=== PATIENT | female | born 1955 | race Caucasian/White ===

== ENCOUNTER 2018-08-16 00:53 | Outpatient (CLI) | payer MEDICARE, OTHER, SELFPAY ==
--- NOTE | 2018-08-16 10:39 | DI.MAMMO_ITS ---
SYMPTOMS/DIAGNOSIS: SCREENING, Z12.31 MAMMOGRAMS: Mammograms were interpreted according to the usual protocol including computer analysis with CAD system, tomosynthesis and C view imaging. The breasts are of moderate density with fairly symmetrical distribution of fibroglandular tissue. No dominant mass or clumped microcalcification is identified in either breast. There is a new small nodular radiodensity projected in the central portion of the left breast on CC view. I cannot confirm this on the MLO view. Additional mammographic views of this area are requested to include CC spot compression view. No other change seen in comparison with the previous examinations including August 2016. CONCLUSION: Additional mammographic views of the left breast requested as described above. Breast ultrasound may be indicated as well depending on the results of the additional mammographic views. Category 0, breast density category B. MQSA ASSESSMENT OF FINDINGS: Incomplete: Needs additional imaging evaluation. Category 0. Patient will receive a letter notifying them of these results. BI-RADS category B. There are scattered areas of fibroglandular density.
== END 2018-08-16 01:13 ==
PROVIDERS: Visit Provider Nurse Practitioner Women's Health
DX: Z12.31 Encounter for screening mammogram for malignant neoplasm of breast (principal); R92.8 Other abnormal and inconclusive findings on diagnostic imaging of breast
CPT/HCPCS: 77063; 77067

== ENCOUNTER 2018-08-28 00:29 | Outpatient (CLI) | payer MEDICARE, OTHER, SELFPAY ==
--- NOTE | 2018-08-28 10:10 | DI.COMBO_ITS ---
SYMPTOM/DIAGNOSIS: F/U MAMMO, NEW SMALL NODULAR RADIODENSITY, LT LEFT BREAST ADDITIONAL VIEWS AND LEFT BREAST ULTRASOUND: Additional images are interpreted according to the usual protocol including tomosynthesis and 2D imaging. A compression spot film of the left breast was obtained today. There are nonspecific fibroglandular densities, a small rounded opacity is however identified in the region of the questionable finding on the patient's mammograms. Left breast ultrasound reveals no apparent mass or cyst. SUMMARY: No specific findings to suggest a malignancy, however follow up evaluation with repeat mammograms and if appropriate, ultrasound in 6 months is recommended for further review. Category 3. MQSA ASSESSMENT OF FINDINGS: Probably benign. Six month follow-up recommended. Category 3. Patient will receive a letter notifying them of these results. BI-RADS category B. There are scattered areas of fibroglandular density.
== END 2018-08-28 00:49 ==
PROVIDERS: Visit Provider Nurse Practitioner Women's Health
DX: Z12.31 Encounter for screening mammogram for malignant neoplasm of breast (principal); R92.8 Other abnormal and inconclusive findings on diagnostic imaging of breast; N64.89 Other specified disorders of breast
CPT/HCPCS: 76642; 77063; 77067

== ENCOUNTER 2019-03-22 10:00 | Outpatient (REF) | payer MEDICARE, OTHER, SELFPAY ==
[2019-03-22 21:11] LABS: ALT 21 U/L (14-59); AST 15 U/L (15-37); Anion Gap 7.5 mmol/L (3-11); BUN 16 mg/dL (7-18); CO2 29.5 mmol/L (21.0-32.0); CREATININE 0.72 mg/dL (0.55-1.02); Calculated LDL 124 mg/dL; Chloride 104 mmol/L (98-107); Cholesterol 191 mg/dL (<200); Glucose 86 mg/dL (74-106); HDL Cholesterol 59 mg/dL (40-60); Potassium 4.3 mmol/L (3.5-5.1); Sodium 141 mmol/L (136-145); Triglyceride 44 mg/dL (<150)
== END 2019-03-22 10:20 ==
LOC: NCHCN 10:00
PROVIDERS: Visit Provider Nurse Practitioner Family
DX: Z13.220 Encounter for screening for lipoid disorders (principal); Z13.228 Encounter for screening for other metabolic disorders
CPT/HCPCS: 80048; 80061; 84450; 84460

== ENCOUNTER 2019-04-25 00:53 | Outpatient (CLI) | payer MEDICARE, OTHER, SELFPAY ==
--- NOTE | 2019-04-25 10:49 | DI.MAMMO_ITS ---
EXAM: MG MAMMO DIAGNOSTIC UNI CLINICAL HISTORY: ABNORMAL MAMMO LT BREAST, R92.8 TECHNIQUE: Full field digital CC and MLO mammographic images were obtained with 3D tomosynthesis and utilizing computer aided detection (CAD). COMPARISON: 2010 through 2018. FINDINGS: This is a six-month follow-up for small nodular asymmetry previously noted in the central left breast . Breast Density - Category B - Scattered areas of fibroglandular density Masses/Architectural Distortion: None seen. The previously noted area of nodularity is not seen on th e current exam. Microcalcifications: No suspicious pleomorphic-type calcifications are seen. Skin Thickening/Nipple Retraction: None. Axilla: Unremarkable. IMPRESSION: 1. BI-RADS category 1, negative. No significant interval change with no specific features of maligna ncy noted. 2. Unless there is more urgent need, screening mammography is recommended, as per [employer] guidelines. BI-RADS Cat 1 - Negative Breast Density - Category B - Scattered areas of fibroglandular density A negative radiographic report should not delay biopsy if a dominant or clinically suspicious mass is present. Up to ten percent of cancers are not identified on mammography. A negative report may reinforce clinical impression. Adenosis and dense breasts may obscure an underlying neoplasm. False positive reports average 6 to 10%. Patient will receive a letter notifying them of these results.
== END 2019-04-25 01:13 ==
PROVIDERS: Visit Provider Nurse Practitioner Women's Health
DX: Z12.31 Encounter for screening mammogram for malignant neoplasm of breast (principal); R92.8 Other abnormal and inconclusive findings on diagnostic imaging of breast; N64.59 Other signs and symptoms in breast
CPT/HCPCS: 77061; 77065; G0279

== ENCOUNTER → 2020-02-27 09:56 | Outpatient (BNVA) | payer MEDICARE, OTHER, SELFPAY | PROVIDERS: Visit Provider Surgery | DX: N63.20 Unspecified lump in the left breast, unspecified quadrant (principal); C50.912 Malignant neoplasm of unspecified site of left female breast | CPT/HCPCS: 19100; 99203; 99204 ==

== ENCOUNTER 2020-03-03 01:35 | Outpatient (CLI) | payer MEDICARE, OTHER, SELFPAY ==
--- NOTE | 2020-03-03 | DI.US_ITS ---
EXAM: US LOWER EXTREMITY VENOUS LT CLINICAL HISTORY: LEG EDEMA,R60.0,H/O DVT,Z86.718. TECHNIQUE: Lower extremity venous ultrasound performed using grayscale, color-flow, and spectral Dop pler analysis. COMPARISON: No exams were available for comparison FINDINGS: The common femoral, femoral and popliteal veins demonstrate normal compressibility, augmentation, and color Doppler. The posterior tibial veins are patent. The saphenous vein appears free of thrombus. No Putnam's cyst or hematoma is seen. IMPRESSION: No evidence of DVT. DATA REPOSITORY:
== END 2020-03-03 01:55 ==
PROVIDERS: Visit Provider Internal Medicine
DX: R60.0 Localized edema (principal); Z86.718 Personal history of other venous thrombosis and embolism
CPT/HCPCS: 93971

== ENCOUNTER 2020-03-10 00:30 | Outpatient (CLI) | payer MEDICARE, OTHER, SELFPAY ==
--- NOTE | 2020-03-10 | DI.US_ITS ---
EXAM: US BREAST LT COMPLETE CLINICAL HISTORY: LT BREAST MASS, N63.0 TECHNIQUE: Ultrasound performed using standard protocol. COMPARISON: US US LOWER EXTREMITY VENOUS LT from 03/03/2020 FINDINGS: Mammography was performed bilaterally, the patient has recently biopsied palpable left breast lesion seen in approximately the 8 o'clock position in the breast. This is mammographically visible as an i rregular asymmetric radiodensity. No other mass identified in either breast. No clumped microcalcif ication seen in either breast. Comparison with prior mammograms shows no other significant interval change in appearance in comparison with previous studies including August 2018. Left breast ultrasound was performed to include the entire left breast in this patient with recently diagnosed breast carcinoma of the medial left breast. Ultrasound shows a lobulated heterogeneous lesion at the 8 o'clock position in the breast measuring a bout 21 millimeters in greatest diameter with significant internal vascularity. This corresponds to the biopsied breast carcinoma. No other lesion identified elsewhere in the left breast on 4 quadrant scanning. IMPRESSION: Recently biopsied medial left breast mass, 8 o'clock position in the breast, which is biopsy confirme d carcinoma. No other lesion identified in either breast mammographically. No other lesion identifi ed in left breast ultrasonographically. BI-RADS category 6. Known biopsy proven malignancy. Breast Density - Category C - Heterogeneously dense DATA REPOSITORY:
== END 2020-03-10 00:50 ==
PROVIDERS: Visit Provider Internal Medicine
DX: C50.312 Malignant neoplasm of lower-inner quadrant of left female breast (principal)
CPT/HCPCS: 76642; 77062; 77066; 71046; G0279

== ENCOUNTER 2020-03-10 11:51 | Outpatient (CLI) | payer MEDICARE, OTHER, SELFPAY ==
--- NOTE | 2020-03-10 07:00 | DI.RAD_ITS ---
EXAM: XR CHEST 2V PA LATERAL CLINICAL HISTORY: Left breast cancer,C50.912 TECHNIQUE: 2D digital imaging was performed. COMPARISON: No exams were available for comparison FINDINGS: There is moderate biconvex thoracolumbar scoliosis with Bustillo marilin in place extending from the lo wer thoracic region into the lumbar region. The heart is not enlarged. The lungs are clear and well expanded. No pleural effusion seen. Mediastin al contours appear intact. IMPRESSION: No evidence of acute process. RADIATION DOSE DELIVERED: Total DLP
== END 2020-03-10 12:11 ==
PROVIDERS: Visit Provider Surgery
DX: C50.912 Malignant neoplasm of unspecified site of left female breast (principal)
CPT/HCPCS: 71046

== ENCOUNTER 2020-03-11 04:07 | Outpatient (CLI) | payer MEDICARE, OTHER, SELFPAY ==
[2020-03-11 12:20] LABS: HCT 43.5 % (36.0-46.0); HGB 14.1 g/dL (11.2-15.7); MCH 29.4 pg (27.0-33.0); MCHC 32.4 % (32.0-36.0); MCV 90.6 fL (80-95); Platelet Count 298 10^3/uL (130-400); RDW 14.1 % (11.7-14.6); RDW-SD 47.4 fL; WBC 7.17 10^3/uL (4.4-10.8)
[2020-03-11 13:44] LABS: ALT 27 U/L (14-59); AST 22 U/L (15-37); Albumin 3.8 g/dL (3.4-5.0); Alkaline Phosphatase 101 U/L (46-116); Anion Gap 7.4 mmol/L (3-11); BUN 20 mg/dL (7-18); Bilirubin, Total 0.4 mg/dL (0.2-1.0); CO2 26.6 mmol/L (21.0-32.0); CREATININE 0.75 mg/dL (0.55-1.02); Chloride 106 mmol/L (98-107); Glucose 90 mg/dL (74-106); Potassium 4.4 mmol/L (3.5-5.1); Sodium 140 mmol/L (136-145)
== END 2020-03-11 04:27 ==
PROVIDERS: Visit Provider Surgery
DX: C50.312 Malignant neoplasm of lower-inner quadrant of left female breast (principal)
CPT/HCPCS: 36415; 80053; 85027

== ENCOUNTER → 2020-03-26 09:33 | Outpatient (BNVA) | payer MEDICARE, OTHER, SELFPAY | PROVIDERS: Visit Provider Surgery | DX: C50.912 Malignant neoplasm of unspecified site of left female breast (principal) | CPT/HCPCS: 99214 ==

== ENCOUNTER 2020-03-27 03:29 | Outpatient (CLI) | payer MEDICARE, OTHER, SELFPAY ==
[2020-03-30 12:11] LABS: COVID-19 RT-PCR Result NEGATIVE (Negative)
== END 2020-03-27 03:49 ==
PROVIDERS: Visit Provider Surgery
DX: Z11.59 Encounter for screening for other viral diseases (principal); Z01.818 Encounter for other preprocedural examination
CPT/HCPCS: U0003

== ENCOUNTER 2020-03-31 06:40 | Day surgery (SDC) | payer MEDICARE, OTHER, SELFPAY ==
[2020-03-31] VITALS (7 sets, daily range): BP systolic 94–125; BP diastolic 57–80; PULSE 55–65; RESP 16–18; TEMP 35.9–37; O2SAT 94–99
--- NOTE | 2020-03-31 06:30 | DI.NM_ITS ---
EXAM: NM SENTNODE INJ ONLY CLINICAL HISTORY: Left breast ca, n63.20. TECHNIQUE: Injected Dose: 1 mCi Tc-99m filtered sulfur colloid COMPARISON: No exams were available for comparison FINDINGS: 1 mCi of technetium 99 M sulfur colloid was injected into the left breast by Dr. Thornton from the Depart ment of surgery according to protocol. No images were obtained. IMPRESSION: 1. Girard node injection. No images were obtained. DATA REPOSITORY:
[2020-03-31] MEDS: Lactated Ringers 1,000 ML 80 ML IV (07:50)
--- NOTE | 2020-03-31 09:12 | PDOC.DSDIS_ITS ---
Discharge Plan Disposition Patient Disposition: HOME Condition: Good Discharge Details Reason For Visit: Left breast lumpectomy and sentinel node biopsy Attending Provider: Danyell Thornton Primary Care Provider: Red Pizarro Home Meds and New Rx's Prescriptions: Continued aspirin 325 mg tablet 325 mg PO DAILY RF: 0 Emergen-C 1,000 mg powder effervescent in packet 1 packet PO DAILY RF: 0 Discharge Instructions Additional Instructions: The top bandages can be removed tomorrow. The steri strips will usually stick for about a week. When the edges start to curl up, they can be removed. It is okay to shower tomorrow, the water can run over the steri strips Do not swim or soak in a tub for two weeks Call for any concerns including fever, increased pain, vomiting, incision redness or drainage. It is normal to have a small lump under the incisions. There will be some blue staining near the nipple and your urine may be blue for a day. Do not lift more than 15 pounds for two weeks. Walking and stairs are fine. Do not drive if on narcotic pain meds or if limited by pain. May use Tylenol alternating with ibuprofen for pain control. Ice is also an o ption. The maximum dose for Tylenol is 4000 mg/day. May use ibuprofen 800 mg every 8 hours as needed. If concerned about constipation, you may use a stool softener or milk of magnesia. Referrals: Danyell Thornton MD [ [facility] STAFF PHYSICIAN] - 04/06/20 Activity:: Do not lift more than 15# Remove Dressings/Wound Care:: 24 hours Shower/Bathe:: 24 hours Diet:: As Tolerated Discharge Orders Discharge Orders: Discharge Order (Routine); Ordered 03/31/20 Ordered By: Danyell Thornton DS: Diagnosis Discharge Diagnosis (1) Breast cancer, left: Status: Acute
--- NOTE | 2020-03-31 09:14 | W.PM.OP ---
Operative Note Operative Note DATE OF PROCEDURE: 03/31/20 PRE-OP DIAGNOSIS: Left breast cancer POST-OP DIAGNOSIS: same PROCEDURE: Left breast lumpectomy and left sentinel node biopsy SURGEON: Danyell Thornton GEAR GENERATOR SET UP OPERATOR: Gina Regan ANESTHESIA: GETA and local Indications: This 65 year old woman presents for surgical treatment of left breast invasive ductal cancer. Procedure Description: The patient was taken to nuclear medicine preoperatively and underwent injection of radioactive sulfur colloid into the left nipple. She was later taken to the operating room and after induction of general anesthetic had the areolar region cleansed with alcohol and 5 cc of methylene blue was injected into the retroareolar location. The left breast and axilla were prepped and draped sterilely. The gamma probe was used to identify an area of high uptake in the axilla. A transverse incision was made after injection local anesthetic. Subcutaneous tissue was divided with cautery to reveal a blue channel which was followed to a large blue lymph node. There may have been 1 or 2 other attached nodes here. The node was excised completely with cautery. The count outside the axilla was 53,120. An additional area of high uptake was identified in the axilla and another node identified. This was excised completely with cautery. The count was 17,526. After removal of the 2 lymph nodes background count was 1491. There was good hemostasis. No other palpable nodes are present so the skin was closed with a 4 Monocryl subcuticular stitch. The lumpectomy was then performed. The mass was located near the sternum at about the 7 o'clock position. The region around the mass was infiltrated with local anesthetic and a wide elliptical incision was made over the mass. Cautery was used to create skin flaps above and below the mass which were taken down to the pectoralis muscle. The mass was dissected off the chest wall by removing a thin layer of pectoralis muscle. There were grossly negative margins. The specimen was labeled with a short stitch superior, long stitch lateral the skin was superficial and pec muscle was deep. This was sent to pathology. Hemostasis was achieved with cautery. The superior and inferior skin flaps were mobilized for better closure. Clips were placed on the periphery of the cavity for future localization. The deep dermis was closed with numerous interrupted buried 2-0 Vicryl sutures and the skin closed with a running 4 Monocryl subcuticular stitch. She tolerated procedure well and stable
[2020-03-31] MEDS: ceFAZolin 2 GM/50 ML BAG IVPB (09:53)
--- NOTE | 2020-03-31 10:27 | BREAST_PTH ---
PATIENT: Tere Carr LOC: [facility] U#:[id number] AGE/SX: 65/F ROOM: RE03/31/[address]: Danyell Thornton MD : [id number] BED: DIS: 03/31/2020 SPEC #: [id number] RECD: 04/01/20 12:36 STATUS: ESA REQ #: [id number] LENNIE: 03/31/20 10:[address]: Danyell Thornton DEPT: Surgical Specimen RECD BY: Geni Rodrigues ENTERED: 04/01/20 12:39 SP TYPE: Breast OTHR DR: Red Pizarro Tissues: 1 - BREAST INCISION/EXCISION 2 - BREAST INCISION/EXCISION 3 - BREAST INCISION/EXCISION Procedures: IMMUNOPEROXIDASE STAIN GROSS AND MICRO LEVEL 5 Comments: [id number] (ALL SPECIMENS RADIOACTIVE)
[2020-03-31] MEDS: Lidocaine 2% Multi-Dose 50 ML VIAL (11:04)
[2020-03-31] MEDS: Bupivacaine 0.5% Pres-Free 30 ML VIAL (11:04)
[2020-03-31] MEDS: Acetaminophen 325 MG TAB 650 MG PO (13:37)
== END 2020-03-31 14:21 | disposition home or self-care (01) ==
LOC: DSU 09:12 → SUR 04-01 10:05 → PDS 04-01 10:06
PROVIDERS: PCP Internal Medicine; Visit Provider Surgery
PROC: (CPT 38525; principal; 2020-03-31 09:30)
PROC: (CPT 38525; 2020-03-31 09:30)
DX: C50.312 Malignant neoplasm of lower-inner quadrant of left female breast (principal); Z17.0 Estrogen receptor positive status [ER+]; Z80.3 Family history of malignant neoplasm of breast
CPT/HCPCS: 38525; 19301; 38792; A9541; 88307; 88361; J0690; J1100; J1885; J2405; J2704

== ENCOUNTER → 2020-04-06 10:32 | Outpatient (BNVA) | payer MEDICARE, OTHER, SELFPAY | PROVIDERS: PCP Internal Medicine; Referring Provider Internal Medicine; Visit Provider Surgery | DX: Z48.89 Encounter for other specified surgical aftercare (principal); C50.912 Malignant neoplasm of unspecified site of left female breast ==

== ENCOUNTER 2020-05-25 02:08 | Outpatient (CLI) | payer MEDICARE, OTHER, SELFPAY ==
[2020-05-25 09:21] LABS: CREATININE 0.9 mg/dL (0.55-1.02)
== END 2020-05-25 02:09 | disposition home or self-care (01) ==
PROVIDERS: PCP Internal Medicine; Visit Provider Radiology Radiation Oncology
DX: C50.312 Malignant neoplasm of lower-inner quadrant of left female breast (principal); R16.0 Hepatomegaly, not elsewhere classified
CPT/HCPCS: 36415; 82565

== ENCOUNTER 2020-05-27 01:24 | Outpatient (CLI) | payer MEDICARE, OTHER, SELFPAY ==
--- NOTE | 2020-05-27 | DI.MRI_ITS ---
EXAM: MR ABDOMEN WO/W CLINICAL HISTORY: F/U ABNL CT SIM FOR RADIATION,R93.5,BREAST CA,HYPODENSE LIVER LESIONS TECHNIQUE: Multiplanar multisequence MRI was performed with both pre and post contrast infused seque nces. Contrast injected sequences were performed following IV injection of 16 cc of Dotarem. COMPARISON: CR XR CHEST 2V PA LATERAL from 03/10/2020 FINDINGS: VISUALIZED LUNG BASES: No pleural effusions evident. There are postsurgical changes in the left [address]. There is a deep fluid collection in the medial left breast upper again suggest wall partially in cluded in the field of view and probably postoperative seroma, this measuring approximately 4 cm wide by 1.2 cm thick. Thoracolumbar scoliosis is noted. There is no ascites evident. Small hiatal hernia evident. LIVER: There are multiple-very numerous well-defined T1 hypointense and T2 hyperintense lesions in th e liver, the largest measuring 2.9 by 1.9 by 2.2 cm, located in the dome. These do not exhibit enhan cement following contrast injection. BILIARY: There is a large gallstone in the gallbladder lumen. No gallbladder wall edema evident. Th e CBD is not dilated. PANCREAS: There is no evidence of pancreatic mass nor dilatation of the pancreatic duct. SPLEEN: Spleen is not enlarged and there are no intrasplenic lesions. ADRENALS: There are no significant adrenal masses. KIDNEYS: No evidence of polycystic kidney disease.There is a small 1 centimeter exophytic cyst off th e medial cortex of the right kidney. No solid renal lesions. No hydronephrosis. ABDOMINAL AORTA: Not enlarged and there is no significant para-aortic adenopathy. ANTERIOR ABDOMINAL WALL/GI: There is no evidence of significant anterior abdominal wall hernia in the field of view of this study.Is no evidence of obvious bowel obstruction. OSSEOUS: There are no lytic osseous lesions in the field of view of this study. Artifact is seen posteriorly related to Bustillo rashard in the lower thoracic-lumbar spine. There is scoliosis. There are no distinct lytic osseous lesions identified in the field of view of this study . IMPRESSION: 1. There are numerous well-defined findings in the liver which all have the signal characteristics of benign cysts, also not exhibiting enhancement following contrast injection. These do not have the a ppearance of metastatic lesions, given the recent breast cancer diagnosis in this patient. 2. There is no evidence of polycystic kidney disease. There is a solitary small cyst in the right ki dney. No cysts in the pancreas. 3. Cholelithiasis noted. This can be confirmed with ultrasound. 4. Postop changes including seroma in the left breast. 5. Scoliosis. Rashard artifact in the spinal column. No obvious lytic osseous lesions. DATA REPOSITORY:
--- NOTE | 2020-05-27 | DI.US_ITS ---
EXAM: US THYROID CLINICAL HISTORY: F/U ABNL FINDINGS ON CT SIM,HYPODENSE LESION RT THYROID,BREAST CA. TECHNIQUE: Ultrasound thyroid performed using standard protocol. COMPARISON: US US BREAST LT COMPLETE from 03/10/2020 FINDINGS: The right thyroid lobe is slightly prominent in size measuring up to 2.3 centimetres AP by 3.4 cm wid e by 5 centimetres cephalocaudal. There are 3 focal nodule evident in the right lobe The largest nodule is at the mid pole level measures 2.7 x 1.7 x 3.4 cm mixed solid-cystic and relati vely isoechoic gland parenchyma. Wider than taller and with smooth margins and no extension beyond t he gland. Does not contain echogenic foci therein. Total point =TR2 Below this level is a slightly smaller solid well-defined nodule in the right lobe which measures 1.3 x 1.2 x 1.2 cm. Also isoechoic to the gland and appearing round, not taller than wider and also exh ibiting smooth margins and no internal echogenic foci. Total points=TR3 More superiorly in the right lobe there is a 6 by 3 millimeter well-defined wider than taller nodule mixed solid-cystic with solid components isoechoic to gland and no echogenic foci therein. Total poi nt= TR2 The isthmus exhibits normal thickness 2-3 millimeters and no nodules. The left thyroid lobe exhibits normal size measuring 1.3 cm x 1.7 x 3.7 cm cephalocaudal. Contains 2 small benign colloid cysts. No significant lymphadenopathy evident IMPRESSION: The right thyroid lobe is enlarged and contains 3 nodules as described above. TR3-recommend repeat ultrasound in 6 months. DATA REPOSITORY:
[2020-05-27] MEDS: Gadoterate meglumine 20 ML VIAL 16 ML IVP (09:24)
== END 2020-05-27 01:25 ==
LOC: DI 01:25
PROVIDERS: PCP Internal Medicine; Visit Provider Radiology Radiation Oncology
DX: E04.2 Nontoxic multinodular goiter (principal); E07.89 Other specified disorders of thyroid; C50.312 Malignant neoplasm of lower-inner quadrant of left female breast; R93.5 Abnormal findings on diagnostic imaging of other abdominal regions, including retroperitoneum; K76.89 Other specified diseases of liver; R16.0 Hepatomegaly, not elsewhere classified; K80.20 Calculus of gallbladder without cholecystitis without obstruction
CPT/HCPCS: 74183; 76536

== ENCOUNTER 2020-10-22 02:16 | Outpatient (CLI) | payer MEDICARE, OTHER, SELFPAY ==
--- NOTE | 2020-10-22 | DI.DEXA_ITS ---
Exam(s) XR DEXA BONE DENSITY W/WO MONIE EXAM: XR DEXA BONE DENSITY W/WO MONIE CLINICAL HISTORY: LT BREAST CA,C50.912,Z17.0,SCREENING FOR OSTEOPOROSIS IN POSTMENOPAUSAL WOM TECHNIQUE: Routine DEXA evaluation of the lumbar spine, hip, or forearm. COMPARISON: No exams were available for comparison FINDINGS: Performed on a Hologic unit. Lateral image: No compression fracture evident. Bustillo marilin Lumbar Spine total T-score: Not done due to Bustillo marilin Hip total T-score:-0.4 Independent reading at the femoral neck level yields a T-score of -0.6 Forearm total T-score: -0.8 IMPRESSION: Bone mineral density measures in the normal range. Fracture risk is low. Note: Any spine fracture indicates 5x risk for subsequent spine fracture and 2x risk for subsequent h ip fracture. World Health Organization criteria for BMD interpretation classify patients: Normal...... T- Score at or above -1.0 Osteopenic... T- Score between -1.0 and -2.5 Osteoporosis... T-Score at or below -2.5
== END 2020-10-22 02:36 ==
PROVIDERS: PCP Internal Medicine; Visit Provider Internal Medicine
DX: Z13.820 Encounter for screening for osteoporosis (principal); C50.912 Malignant neoplasm of unspecified site of left female breast; Z17.0 Estrogen receptor positive status [ER+]; Z78.0 Asymptomatic menopausal state; Z79.811 Long term (current) use of aromatase inhibitors
CPT/HCPCS: 77080

== ENCOUNTER 2021-05-09 18:30 | Emergency (ER) | payer MEDICARE, OTHER, SELFPAY ==
[2021-05-09 18:35] VITALS: BP 147/77; PULSE 96; RESP 18; TEMP 37.2; O2SAT 97
--- NOTE | 2021-05-09 19:02 | ED.GENADUL_ITS ---
Discharge Plan Disposition Patient Disposition: HOME Condition: Improving Discharge Details Clinical Impression: Edema of left lower extremity Primary Care Provider: Red Pizarro ED Provider: Gerardo Meneses Home Meds and New Rx's Prescriptions: Continued aspirin 325 mg tablet 325 mg PO DAILY RF: 0 Emergen-C 1,000 mg powder effervescent in packet 1 packet PO DAILY RF: 0 coenzyme Q10 [Co Q-10] 10 mg capsule 10 mg PO ONCE RF: 0 cholecalciferol (vitamin D3) 10 mcg (400 unit) capsule 10 mcg PO DAILY RF: 0 Discharge Instructions Additional Instructions: As we discussed you were administered a single dose of Lovenox as a blood thinner overnight. You will return tomorrow morning for a left lower extremity ultrasound. Please call the radiology office at 7:30-8 AM at [phone] for an appointment time. Return sooner for any acute concerns. Medical Decision Making 66-year-old female presents from home with day 2 of left lower extremity swelling and discomfort due to the edema. No pain. She has not had any chest pain or shortness of breath. She reports having previous DVT for which she was anticoagulated with warfarin, which she last took 10 years ago. Patient is well-appearing, interactive, in no acute distress and oxygenating normally. Exam of her left leg is concerning for DVT given the increased circumference versus contralateral side and venous congestion present. Patient consented for subcutaneous Lovenox and will return tomorrow morning for ultrasound of the left lower extremity. She is stable and appropriate for discharge at this time. HPI General Mode of arrival: ambulatory . Date/Time Provider Initiated Documentation: 05/09/21 18:42 . Limitations to Documentation: no limitations . Information obtained by: patient . History of Present Illness 66 year old F presents to the emergency department with the chief complaint of Left leg swelling over 2 days time, described as moderate and similar to prior episodes, Quality is described as constant, and is localized to the left and lower extremity. Patient reports no radiation. Patient started experiencing this hour(s) No relieving factors improve symptom(s), No exacerbating factors reported . Patient notes denies chest pain and shortness of breath. Patient did receive the following treatments prior to arrival, none Related Data Home Medications Medication Instructions Recorded Confirmed aspirin 325 mg tablet 325 mg PO DAILY 02/27/20 04/06/20 ascorbic acid 1,000 1 packet PO DAILY 03/26/20 04/06/20 ls-[id number]-[id number] powder effervescent pack cholecalciferol (vitamin D3) 10 10 mcg PO DAILY 11/03/20 mcg (400 unit) capsule coenzyme Q10 10 mg capsule 10 mg PO ONCE 11/03/20 Allergies Allergy/AdvReac Type Severity Reaction Status Date / Time No Known Allergies Allergy Unverified 05/09/21 18:44 General Stated Complaint: Vascular PITER: 3 Review of Systems Narrative: No chest pain or shortness of breath. Not currently anticoagulated. Otherwise well. 4 systems were reviewed and otherwise negative. PFSH All Active Problems (Updated 05/09/21 @ 19:05 by Gerardo Meneses MD) Edema of left lower extremity (Acute) Mentally challenged (Acute) Thyroid nodule (Acute) Screening for colon cancer (Acute) Mental disability (Acute) Breast cancer, left (Acute) Medical History DVT, bilateral lower limbs Tx with heperain Dysphagia Epilepsy Per sister she has a slight developmental delay, but is pretty with it, per sister she signs for self Esotropia, left eye Family history of breast cancer Left breast mass Leg edema Liver cyst Postop check Scoliosis Seizure disorder Dx at age 12yrs Per sister she hasnt had one in over 10 years Surgical History (Updated 03/25/21 @ 07:00 by Garima Horne RN) Hx of colonoscopy (~04/2010) Status post left breast lumpectomy (~03/2020) with sentinel node bx, Thornton Family History Mother Breast cancer Dx 50s Sister Breast cancer Dx 40s Sister No problems noted. Social History Smoking/Tobacco Use Status: Never Smoking risk assessment performed?: Yes Alcohol Intake: current Alcohol Intake frequency: a few times a week Alcohol type: hard liquor Drug use: Never Substance use type: does not use Details: alcohol: t-2, pt. had a Susanne drink for her birthday Do you feel safe at home: Yes Do you feel safe in your relationship?: Yes Additional Social history: unable to assess privately Exam Narrative Exam Narrative: GEN: awake, alert, oriented 3. Pleasant, well groomed, interactive. HEAD: Normocephalic, atraumatic ENT: Mucous membranes moist, oropharynx unremarkable, External ear exam unremar kable EYES: PERRL, EOMI NECK: Full ROM, no ERICH, no menigismus CHEST/RESP: Nontender, clear to auscultation bilateral, no wheeze/rhonchi/rales CARDIOVASCULAR: RRR, no murmur, rub aman. 2+ Rad pulse bilateral EXT: Full ROM, left lower extremity is edematous, greater in circumference around the calf than the right, mild venous congestion present. Neuro: Grossly normal neurologic exam, conversant, interactive. Psych: Speech fluent, thoughts congruent, affect normal Course Vital Signs Vital signs: Vital Signs Temperature 37.2 C 05/09/21 18:35 Pulse 96 H 05/09/21 18:35 Respiratory Rate 18 05/09/21 18:35 Blood Pressure 147/77 H 05/09/21 18:35 Pulse Oximetry 97 05/09/21 18:35 Temperature 37.2 C 05/09/21 18:35 Temperature Source Temporal Artery Scan 05/09/21 18:35 Pulse 96 H 05/09/21 18:35 Respiratory Rate 18 05/09/21 18:35 Respiratory Effort Non-Labored 05/09/21 18:42 Blood Pressure 147/77 H 05/09/21 18:35 Blood Pressure Position Sitting 05/09/21 18:35 Pulse Oximetry 97 05/09/21 18:35 Oxygen Delivery Method Room Air 05/09/21 18:35 Oxygen Flow Rate 0 05/09/21 18:35 Pain Level 8 05/09/21 18:35 PAWSS Have you Been Recently Intoxicated or Drunk Within the Last 30 days?: No Have you Ever Experienced Previous Episodes of Alcohol Withdrawal?: No Have you ever Experienced Withdrawal Seizures?: No Have you ever Experienced Delirium Tremens(DT)s?: No Have you ever undergone Alcohol Rehabilitation Treatment (i.e, inpt ot outpatient treatment programs)?: No Have you ever Experienced Blackouts?: No Have you ever Combined Alcohol with other Downers within the last 90 days?: No Have you ever Combined Alcohol with any other Substance of Abuse during the last 90 days?: No Positive Blood Alcohol level on Presentation? [PCS.BAL]: No Evidence of Increased Autonomic Activity (i.e. HR>120, tremor, sweating, agitation, nausea)?: No Result: 0
[2021-05-09] MEDS: Enoxaparin 80 MG/0.8 ML SYR SC (19:29)
--- NOTE | 2021-05-09 20:36 | NUR.NOTE ---
Faxed DI requistion for L LE ultra sound. Patient instructed to call [phone] to make appt. Will follow up in ED after imaging.Nursing Note:
== END 2021-05-09 19:39 | disposition home or self-care (01) ==
PROVIDERS: Emergency Provider Emergency Medicine; PCP Internal Medicine
DX: R60.0 Localized edema (principal); Z86.718 Personal history of other venous thrombosis and embolism
CPT/HCPCS: 96372; 99284; 99283; J1650

== ENCOUNTER → 2021-05-10 09:21 | Outpatient (CLI) | payer MEDICARE, OTHER, SELFPAY ==
--- NOTE | 2021-05-10 | DI.US_ITS ---
Exam(s) US LOWER EXTREMITY VENOUS LT EXAM: US LOWER EXTREMITY VENOUS LT CLINICAL HISTORY: LT LEG SWELLING, R22.42, EDEMA. TECHNIQUE: Lower extremity venous ultrasound performed using grayscale, color-flow, and spectral Do ppler analysis. COMPARISON: US US LOWER EXTREMITY VENOUS LT from 03/03/2020 FINDINGS: The common femoral and femoral veins demonstrate normal compressibility, augmentation, and color Dopp ler. There is partially occlusive thrombus visible in the popliteal vein extending into a proximal p eroneal vein, measuring greater than 5 cm in length. The posterior tibial veins are patent. No saph enous vein thrombosis or other superficial venous thrombosis is seen. No hematoma or Putnam's cyst is seen. Subcutaneous edema is present. IMPRESSION: DVT involving the popliteal through proximal peroneal veins. DATA REPOSITORY:
== END ==
PROVIDERS: PCP Internal Medicine; Visit Provider Emergency Medicine
DX: R22.42 Localized swelling, mass and lump, left lower limb (principal); I82.432 Acute embolism and thrombosis of left popliteal vein; I82.452 Acute embolism and thrombosis of left peroneal vein
CPT/HCPCS: 93971

== ENCOUNTER 2021-05-10 10:20 | Emergency (ER) | payer MEDICARE, OTHER, SELFPAY ==
[2021-05-10 10:27] VITALS: BP 134/73; PULSE 80; RESP 16; TEMP 36.4; O2SAT 98
--- NOTE | 2021-05-10 10:42 | W.ED.GENAD ---
Discharge Plan Disposition Patient Disposition: HOME Condition: Stable Discharge Details Clinical Impression: DVT (deep venous thrombosis) Primary Care Provider: Red Pizarro ED Provider: Silvano Toro Home Meds and New Rx's Prescriptions: New Eliquis DVT-PE Treat 30D Start 5 mg (74 tabs) tablets,dose pack See Rx Instructions .ROUTE .COMPLEX Qty: 74 RF: 0 Continued aspirin 325 mg tablet 325 mg PO DAILY RF: 0 Emergen-C 1,000 mg powder effervescent in packet 1 packet PO DAILY RF: 0 coenzyme Q10 [Co Q-10] 10 mg capsule 10 mg PO ONCE RF: 0 cholecalciferol (vitamin D3) 10 mcg (400 unit) capsule 10 mcg PO DAILY RF: 0 Discharge Instructions Instructions: Deep Vein Thrombosis (ED) Additional Instructions: Your ultrasound reveals a DVT in your left lower extremity. After discussing options, speaking with your sister, and speaking with Dr. Pizarro, the plan is to initiate a prescription of Eliquis. Please watch for new or worsening symptoms and return to the ER for any concerns. I would like you to contact your primary care office later today or tomorrow to discuss your ER visit need for outpatient reevaluation. This medication can cause bleeding and I strongly recommend that you seek medical attention for things that you may have not otherwise such as a minor car accident, bumping your head, etc. Medical Decision Making 66-year-old female presents for ultrasound results. Contacted by radiology and the patient does have a DVT. I discussed the findings with the patient as well as her sister Tatum. They both refer no additional Lovenox and a simple oral agent. Given her cognitive delay, I did reach out to her primary care office and was able to speak with Dr. Pizarro. He feels as though starting the patient on Eliquis is perfectly appropriate and will be happy to follow her as an outpatient whether it be through himself or one of his colleagues. This plan was then relayed to both the patient and her sister once again. No additional questions or concerns. Patient appears well, nontoxic, denies any chest pain or shortness of breath. Prescription for Eliquis was sent to her pharmacy. Strict discharge and return precautions were provided. This documentation was generated using [employer] system, please disregard any oddities of phrase or misspellings. Medical Records Medical records reviewed: Yes I reviewed the patient's medical records. Imaging Data Radiologic Study: Attestation: I personally reviewed and interpreted this imaging study as follows: Imaging: Ultrasound Radiologist's impression: Exam(s) US LOWER EXTREMITY VENOUS LT EXAM: US LOWER EXTREMITY VENOUS LT CLINICAL HISTORY: LT LEG SWELLING, R22.42, EDEMA. TECHNIQUE: Lower extremity venous ultrasound performed using grayscale, color-flow, and spectral Doppler analysis. COMPARISON: US US LOWER EXTREMITY VENOUS LT from 03/03/2020 FINDINGS: The common femoral and femoral veins demonstrate normal compressibility, augmentation, and color Doppler. There is partially occlusive thrombus visible in the popliteal vein extending into a proximal peroneal vein, measuring greater than 5 cm in length. The posterior tibial veins are patent. No saphenous vein thrombosis or other superficial venous thrombosis is seen. No hematoma or Putnam's cyst is seen. Subcutaneous edema is present. IMPRESSION: DVT involving the popliteal through proximal peroneal veins. HPI General Mode of arrival: ambulatory. Date/Time Provider Initiated Documentation: 05/10/21 10:26. Limitations to Documentation: no limitations. Information obtained by: patient. HPI Narrative: This is a 66-year-old female, past medical history of DVT, leg edema, breast cancer, presenting to the ER for ultrasound results for concern of a DVT in her left lower extremity. Patient was seen in the ER yesterday, given a single dose of Lovenox and set up for an ultrasound today, please refer to that note. Patient denies any chest pain or shortness of breath. She denies fever or worsening discomfort in her leg. Reports the discomfort in her back is slightly improved. Patient states that she was on Coumadin when she last had a DVT, but does not believe that she can safely give herself Lovenox injections. Related Data Home Medications Medication Instructions Recorded Confirmed aspirin 325 mg tablet 325 mg PO DAILY 02/27/20 05/10/21 ascorbic acid 1,000 1 packet PO DAILY 03/26/20 05/10/21 dk-[id number]-wbtjvrsg powder effervescent pack cholecalciferol (vitamin D3) 10 10 mcg PO DAILY 11/03/20 05/10/21 mcg (400 unit) capsule coenzyme Q10 10 mg capsule 10 mg PO ONCE 11/03/20 05/10/21 apixaban [Eliquis DVT-PE Treat 30D See Rx Instructions .ROUTE 05/10/21 Start] .COMPLEX #74 dose pk Previous Rx's Medication Instructions Recorded apixaban [Eliquis DVT-PE Treat 30D See Rx Instructions .ROUTE 05/10/21 Start] .COMPLEX #74 dose pk Allergies Allergy/AdvReac Type Severity Reaction Status Date / Time No Known Allergies Allergy Unverified 05/10/21 10:31 General Stated Complaint: Recheck PITER: 5 Review of Systems Constitutional Constitutional: Denies fever(s) Cardiovascular Cardiovascular: Denies chest pain and Denies dyspnea Respiratory Respiratory: Denies dyspnea Musculoskeletal Musculoskeletal: Denies arthralgias, Denies numbness, Denies stiffness and Denies tingling Integumentary/Breasts Skin/Breast: Denies rash Neurologic Neurologic: Denies numbness and Denies tingling Hematologic/Lymphatic Hematologic/Lymphatic: Denies easy bleeding and Denies easy bruising PFSH All Active Problems Edema of left lower extremity (Acute) DVT (deep venous thrombosis) (Chronic) Mentally challenged (Acute) Thyroid nodule (Acute) Screening for colon cancer (Acute) Mental disability (Acute) Breast cancer, left (Acute) Medical History DVT, bilateral lower limbs Tx with heperain Dysphagia Epilepsy Per sister she has a slight developmental delay, but is pretty with it, per sister she signs for self Esotropia, left eye Family history of breast cancer Left breast mass Leg edema Liver cyst Postop check Scoliosis Seizure disorder Dx at age 12yrs Per sister she hasnt had one in over 10 years Surgical History Hx of colonoscopy (~04/2010) Status post left breast lumpectomy (~03/2020) with sentinel node bx, [place] Family History Mother Breast cancer Dx 50s Sister Breast cancer Dx 40s Sister No problems noted. Social History Smoking/Tobacco Use Status: Never Smoking risk assessment performed?: Yes Alcohol Intake: current Alcohol Intake frequency: a few times a week Alcohol type: hard liquor Drug use: Never Substance use type: does not use Details: alcohol: t-2, pt. had a Susanne drink for her birthday Do you feel safe at home: Yes Do you feel safe in your relationship?: Yes Additional Social history: unable to assess privately Exam Const General: cooperative, healthy appearing, comfortable and no acute distress Orientation: alert and awake [facility] Head: normal to inspection, normocephalic and atraumatic Eyes Conjunctivae: conjunctivae normal Neck Neck: normal visual inspection, trachea midline and supple Resp Effort & Inspection: normal respiratory effort and able to speak in complete sentences Auscultation: clear to auscultation bilaterally Cardio Rate: regular rate Rhythm: regular rhythm Skin General skin exam: no rashes or lesions noted Neuro General: patient alert, patient awake, moves all extremities and no focal motor deficits Cognition: normal cognition Speech: speech normal Gait: normal gait Sensory Exam: no sensory deficits noted Extrem General: full ROM and capillary refill normal Other: Left leg with diffuse mild edema-swelling to the calf region with discomfort and it appears to be mild vascular congestion. There is no erythema, warmth, induration or fluctuance. Normal pedal pulse and capillary refill. No palpable cord noted. Psych Appearance: grossly normal Mental Status: mental status grossly normal Course Vital Signs Vital signs: Vital Signs Temperature 36.4 C L 05/10/21 10:27 Pulse 80 05/10/21 10:27 Respiratory Rate 16 05/10/21 10:27 Blood Pressure 134/73 05/10/21 10:27 Pulse Oximetry 98 05/10/21 10:27 Temperature 36.4 C L 05/10/21 10:27 Temperature Source Oral 05/10/21 10:27 Pulse 80 05/10/21 10:27 Respiratory Rate 16 05/10/21 10:27 Respiratory Effort 05/10/21 10:27 Blood Pressure 134/73 05/10/21 10:27 Blood Pressure Position Sitting 05/10/21 10:27 Pulse Oximetry 98 05/10/21 10:27 Oxygen Delivery Method Room Air 05/10/21 10:27 Oxygen Flow Rate 0 05/10/21 10:27 Pain Level 7 05/10/21 10:27
[2021-05-10 11:25] VITALS: BP 125/71; PULSE 75; RESP 14; TEMP 36.4; O2SAT 96
[2021-05-10 11:37] VITALS: BP 125/71; PULSE 75; RESP 14; TEMP 36.4; O2SAT 96
[2021-05-10] MEDS: Apixaban 5 MG TAB 10 MG PO ×2 (14:00)
== END 2021-05-10 11:44 | disposition home or self-care (01) ==
PROVIDERS: Emergency Provider Physician Assistant; PCP Internal Medicine
DX: I82.492 Acute embolism and thrombosis of other specified deep vein of left lower extremity (principal)

== ENCOUNTER 2021-05-13 19:29 | Emergency (ER) | payer MEDICARE, OTHER, SELFPAY ==
[2021-05-13 19:36] VITALS: BP 153/83; PULSE 94; RESP 18; TEMP 36.3; O2SAT 97
--- NOTE | 2021-05-13 20:15 | W.ED.GENAD ---
Discharge Plan Disposition Patient Disposition: HOME Condition: Stable Discharge Details Clinical Impression: DVT (deep venous thrombosis) Primary Care Provider: Red Pizarro ED Provider: Silvano Toro Home Meds and New Rx's Prescriptions: Continued aspirin 325 mg tablet 325 mg PO DAILY RF: 0 Emergen-C 1,000 mg powder effervescent in packet 1 packet PO DAILY RF: 0 coenzyme Q10 [Co Q-10] 10 mg capsule 10 mg PO ONCE RF: 0 cholecalciferol (vitamin D3) 10 mcg (400 unit) capsule 10 mcg PO DAILY RF: 0 Eliquis DVT-PE Treat 30D Start 5 mg (74 tabs) tablets,dose pack See Rx Instructions .ROUTE .COMPLEX Qty: 74 RF: 0 Discharge Instructions Instructions: Deep Vein Thrombosis (ED) Additional Instructions: You were diagnosed with a DVT on Monday and treated appropriately with Eliquis. It may take additional time for your symptoms to resolve. As we discussed, rest, elevate, warm compresses every 2 hours for 20 minutes, be sure to monitor your water intake, continue wearing your compression stockings, and she may walk on your treadmill several times a day. Please watch for new or worsening symptoms and return to the ER for any concerns. Lastly, I do recommend contacting your primary care provider tomorrow to discuss your ongoing symptoms, if symptoms were to continue or worsen then outpatient repeat ultrasound may be indicated Medical Decision Making 66-year-old female concerned that her DVT is not improving fast enough, has been taking Eliquis since Monday. She denies worsening symptoms, chest pain or shortness of breath. I personally evaluated the patient on Monday and I do not see any obvious significant difference or worsening of her symptoms. Patient reports that in the past Coumadin worked well for her 10 years ago. We once again discussed Coumadin versus Eliquis, pros and cons, bridging, etc. and patient would like to continue with the Eliquis. I was then able to speak with the patient sister, Tatum, and made her aware of the ER visit, wish to continue taking the Eliquis. We discussed the importance of contacting their primary care provider tomorrow to discuss the need for outpatient reevaluation. Strict discharge and return precautions were provided Medical Records Medical records reviewed: Yes I reviewed the patient's medical records. HPI General Mode of arrival: ambulatory. Date/Time Provider Initiated Documentation: 05/13/21 19:29. Limitations to Documentation: no limitations. Information obtained by: patient. HPI Narrative: This is a 66-year-old female, past medical history of epilepsy, DVT approximately 10 years ago, subsequent DVT that was diagnosed on Monday and patient was started on Eliquis, presenting to the ER this evening for concern that her leg has not improved fast enough. Patient states that she has been taking her Eliquis as directed. She denies any chest pain or shortness of breath. She denies any worsening symptoms of her leg but is concerned that it is not getting better as fast as she would like. She denies any fever, numbness, tingling, weakness. Reports that her leg feels tight and is slightly painful. Has not taken any ahjp-rxo-eeijcnr medications for her symptoms Related Data Home Medications Medication Instructions Recorded Confirmed aspirin 325 mg tablet 325 mg PO DAILY 02/27/20 05/10/21 ascorbic acid 1,000 1 packet PO DAILY 03/26/20 05/10/21 vf-iylmkojijvnr-xzpbponn powder effervescent pack cholecalciferol (vitamin D3) 10 10 mcg PO DAILY 11/03/20 05/10/21 mcg (400 unit) capsule coenzyme Q10 10 mg capsule 10 mg PO ONCE 11/03/20 05/10/21 Eliquis DVT-PE Treat 30D Start See Rx Instructions .ROUTE 05/10/21 .COMPLEX #74 dose pk Previous Rx's Medication Instructions Recorded Eliquis DVT-PE Treat 30D Start See Rx Instructions .ROUTE 05/10/21 .COMPLEX #74 dose pk Allergies Allergy/AdvReac Type Severity Reaction Status Date / Time No Known Allergies Allergy Unverified 05/10/21 10:31 General Stated Complaint: Vascular PITER: 4 Review of Systems Constitutional Constitutional: Denies fever(s), Denies headache(s) and Denies weakness ENT Ears, Nose, Mouth, and Throat: Denies headache(s) Cardiovascular Cardiovascular: Denies chest pain and Denies dyspnea Respiratory Respiratory: Denies cough and Denies dyspnea Musculoskeletal Musculoskeletal: Denies deformity, Denies arthralgias, Denies numbness, Reports stiffness and Denies tingling Integumentary/Breasts Skin/Breast: Denies erythema Neurologic Neurologic: Denies headache(s), Denies numbness, Denies tingling and Denies weakness Hematologic/Lymphatic Hematologic/Lymphatic: Denies easy bleeding and Denies easy bruising PFSH All Active Problems (Updated 05/13/21 @ 20:27 by SUNITA Matos) Edema of left lower extremity (Acute) DVT (deep venous thrombosis) (Chronic) Mentally challenged (Acute) Thyroid nodule (Acute) Screening for colon cancer (Acute) Mental disability (Acute) Breast cancer, left (Acute) Medical History DVT, bilateral lower limbs Tx with heperain Dysphagia Epilepsy Per sister she has a slight developmental delay, but is pretty with it, per sister she signs for self Esotropia, left eye Family history of breast cancer Left breast mass Leg edema Liver cyst Postop check Scoliosis Seizure disorder Dx at age 12yrs Per sister she hasnt had one in over 10 years Surgical History Hx of colonoscopy (~04/2010) Status post left breast lumpectomy (~03/2020) with sentinel node bx, [place] Family History Mother Breast cancer Dx 50s Sister Breast cancer Dx 40s Sister No problems noted. Social History Smoking/Tobacco Use Status: Never Smoking risk assessment performed?: Yes Alcohol Intake: current Alcohol Intake frequency: a few times a week Alcohol type: hard liquor Drug use: Never Substance use type: does not use Details: alcohol: t-2, pt. had a Susanne drink for her birthday Do you feel safe at home: Yes Do you feel safe in your relationship?: Yes Additional Social history: unable to assess privately Exam Const General: cooperative, healthy appearing, comfortable and no acute distress Orientation: alert and awake [facility] Head: normal to inspection, normocephalic and atraumatic Eyes Conjunctivae: conjunctivae normal Neck Neck: normal visual inspection, trachea midline and supple Resp Effort & Inspection: normal respiratory effort and able to speak in complete sentences Auscultation: clear to auscultation bilaterally Cardio Rate: regular rate Rhythm: regular rhythm Skin General skin exam: no rashes or lesions noted Neuro General: patient alert, patient awake, moves all extremities and no focal motor deficits Cognition: normal cognition Speech: speech normal Gait: normal gait Motor: muscle tone normal throughout Sensory Exam: no sensory deficits noted Extrem General: full ROM and capillary refill normal Other: Left leg with diffuse mild edema-swelling to the calf region with discomfort and it appears to be mild vascular congestion. There is no erythema, warmth, induration or fluctuance. Normal pedal pulse and capillary refill. No palpable cord noted. Psych Appearance: grossly normal Mental Status: mental status grossly normal Course Vital Signs Vital signs: Vital Signs Temperature 36.3 C L 05/13/21 19:36 Pulse 94 H 05/13/21 19:36 Respiratory Rate 18 05/13/21 19:36 Blood Pressure 153/83 H 05/13/21 19:36 Pulse Oximetry 97 05/13/21 19:36 Temperature 36.3 C L 05/13/21 19:36 Temperature Source Temporal Artery Scan 05/13/21 19:36 Pulse 94 H 05/13/21 19:36 Respiratory Rate 18 05/13/21 19:36 Respiratory Effort 05/13/21 19:40 Blood Pressure 153/83 H 05/13/21 19:36 Blood Pressure Position Sitting 05/13/21 19:36 Pulse Oximetry 97 05/13/21 19:36 Oxygen Delivery Method Room Air 05/13/21 19:36 Oxygen Flow Rate 0 05/13/21 19:36
[2021-05-13 20:34] VITALS: BP 119/44; PULSE 89; RESP 18; TEMP 36.8; O2SAT 98
== END 2021-05-13 20:37 | disposition home or self-care (01) ==
PROVIDERS: Emergency Provider Physician Assistant; PCP Internal Medicine
DX: I82.432 Acute embolism and thrombosis of left popliteal vein (principal)
CPT/HCPCS: 99281; 99282

== ENCOUNTER 2021-05-18 14:55 | Outpatient (REF) | payer MEDICARE, OTHER, SELFPAY ==
[2021-05-18 21:36] LABS: HCT 40.6 % (36.0-46.0); HGB 12.6 g/dL (11.2-15.7); MCH 28.7 pg (27.0-33.0); MCV 92.5 fL (80-95); MPV 10.4 fL (8.0-11.0); Platelet Count 348 10^3/uL (130-400); RBC 4.39 10^6/uL (3.93-5.22); RDW 13.6 % (11.7-14.6); RDW-SD 46.5 fL; WBC 7.34 10^3/uL (4.4-10.8)
[2021-05-18 21:44] LABS: ALT 30 U/L (14-59); AST 29 U/L (15-37); Albumin 3.3 g/dL (3.4-5.0); Alkaline Phosphatase 109 U/L (46-116); Anion Gap 5.9 mmol/L (3-11); BUN 19 mg/dL (7-18); Bilirubin, Total 0.2 mg/dL (0.2-1.0); CO2 29.1 mmol/L (21.0-32.0); CREATININE 0.9 mg/dL (0.55-1.02); Calcium 8.9 mg/dL (8.5-10.1); Chloride 104 mmol/L (98-107); FREE T4 1.15 ng/dL (0.76-1.46); Glucose 88 mg/dL (74-106); Potassium 4.4 mmol/L (3.5-5.1); Sodium 139 mmol/L (136-145); TSH 1.11 uIU/mL (0.36-3.74); Total Protein 6.7 g/dL (6.4-8.2)
== END 2021-05-18 14:56 | disposition home or self-care (01) ==
LOC: NCHCN 14:55
PROVIDERS: PCP Internal Medicine; Visit Provider Internal Medicine
DX: E04.1 Nontoxic single thyroid nodule (principal); Z85.3 Personal history of malignant neoplasm of breast; I82.492 Acute embolism and thrombosis of other specified deep vein of left lower extremity
CPT/HCPCS: 80053; 85027; 84439; 84443

== ENCOUNTER 2021-05-19 08:49 | Outpatient (CLI) | payer MEDICARE, OTHER, SELFPAY ==
--- NOTE | 2021-05-19 | DI.US_ITS ---
Exam(s) US LOWER EXTREMITY VENOUS LT EXAM: US LOWER EXTREMITY VENOUS LT CLINICAL HISTORY: KNOWN DVT WITH INCREASED SWELLING, I82.90, ? CLOT EXTENDING PROXIMALLY TECHNIQUE: Grayscale, color, and doppler imaging of the deep venous system of the left lower extremi ty was performed. COMPARISON: US US LOWER EXTREMITY VENOUS LT from 05/10/2021 FINDINGS: There is no evidence of intraluminal thrombus and there is normal compression and augmentation demons trated within the common femoral vein, femoral vein, and popliteal vein. In the ipsilateral calf the interrogated veins also exhibit normal compression/ augmentation properti es. The ipsilateral saphenofemoral junction is patent. IMPRESSION: 1. No evidence of DVT in the left lower extremity. DATA REPOSITORY:
== END 2021-05-19 09:09 ==
PROVIDERS: PCP Internal Medicine; Visit Provider Internal Medicine
DX: R22.42 Localized swelling, mass and lump, left lower limb (principal); Z86.718 Personal history of other venous thrombosis and embolism
CPT/HCPCS: 93971

== ENCOUNTER 2021-08-03 04:11 | Outpatient (CLI) | payer MEDICARE, OTHER, SELFPAY ==
--- NOTE | 2021-08-03 13:00 | DI.US_ITS ---
Exam(s) US THYROID EXAM: US THYROID CLINICAL HISTORY: THYROID NODULE, E04.1. TECHNIQUE: Ultrasound thyroid performed using standard protocol. COMPARISON: US US THYROID from 05/27/2020 FINDINGS: ISTHMUS: 2 mm RIGHT LOBE: Size: 4.9 x 2.1 x 2.5 cm Echogenicity: Normal. Vascularity: Normal. Nodules: There are right thyroid nodules present. There is a 3.4 x 1.8 x 2.7 cm predominantly solid isoechoic nodule in the midpole. It has smooth margins and no echogenic foci. It is consistent with a TI-RADS level 3 nodule. Due to its size FNA should be considered. There is also solid 1.3 x 1.4 x 1.4 cm nodule in the inferior pole. It is isoechoic with punctate echogenic foci. It is consisten t with a TI rads level 4 nodule. Due to its size, follow-up ultrasound is recommended. LEFT LOBE: Size: 3.9 x 1.3 x 1.6 cm Echogenicity: Normal. Vascularity: Normal. Nodules: No nodules are seen that would require follow-up ultrasound or FNA. OTHER FINDINGS: None. IMPRESSION: Multinodular thyroid gland as described above. DATA REPOSITORY:
== END 2021-08-03 04:31 ==
PROVIDERS: PCP Internal Medicine; Visit Provider Nurse Practitioner Family
DX: E04.2 Nontoxic multinodular goiter (principal)
CPT/HCPCS: 76536

== ENCOUNTER 2022-07-19 11:19 | Outpatient (REF) | payer MEDICARE, OTHER, SELFPAY ==
[2022-07-19 14:47] LABS: HCT 45.3 % (36.0-46.0); HGB 14.6 g/dL (11.2-15.7); MCH 28.5 pg (27.0-33.0); MCHC 32.2 % (32.0-36.0); MCV 88 fL (80-95); Platelet Count 301 10^3/uL (130-400); RBC 5.13 10^6/uL (3.93-5.22); RDW 14.4 % (11.7-14.6); RDW-SD 46.4 fL; WBC 10.12 10^3/uL (4.4-10.8)
[2022-07-19 14:56] LABS: INR 2.8 (0.9-1.1); Prothrombin Time 28.2 sec (9.3-11.0)
[2022-07-19 15:06] LABS: ALT 21 U/L (14-59); AST 18 U/L (15-37); Albumin 3.7 g/dL (3.4-5.0); Alkaline Phosphatase 111 U/L (46-116); Anion Gap 8.8 mmol/L (3-11); BUN 22 mg/dL (7-18); Bilirubin, Total 0.4 mg/dL (0.2-1.0); CO2 28.2 mmol/L (21.0-32.0); CREATININE 0.9 mg/dL (0.55-1.02); Calcium 9.2 mg/dL (8.5-10.1); Chloride 105 mmol/L (98-107); Glucose 88 mg/dL (74-106); Potassium 4.3 mmol/L (3.5-5.1); Sodium 142 mmol/L (136-145)
[2022-07-19 16:20] LABS: Vitamin D 25 Total 70.9 ng/mL (30-100)
== END 2022-07-19 11:20 | disposition home or self-care (01) ==
LOC: NCHCN 11:19
PROVIDERS: PCP Internal Medicine; Visit Provider Nurse Practitioner Family
DX: K76.89 Other specified diseases of liver (principal); E04.1 Nontoxic single thyroid nodule; I82.432 Acute embolism and thrombosis of left popliteal vein; G40.909 Epilepsy, unspecified, not intractable, without status epilepticus; Z79.811 Long term (current) use of aromatase inhibitors; Z85.3 Personal history of malignant neoplasm of breast
CPT/HCPCS: 80053; 82306; 85027; 85610

== ENCOUNTER 2022-08-01 00:48 | Outpatient (CLI) | payer MEDICARE, OTHER, SELFPAY ==
--- NOTE | 2022-08-01 | DI.MAMMO_ITS ---
Exam(s) MG MAMMO SCREENING 60 MIN DUR EXAM: MG MAMMO SCREENING 60 MIN DUR CLINICAL HISTORY: SCREENING FOR BREAST CANCER Z12.39 PERS HX BREAST CANCER TECHNIQUE: Bilateral full field digital CC and MLO mammographic images were obtained with 3D tomosyn thesis and utilizing computer aided detection (CAD). COMPARISON: Available for comparison. FINDINGS: Masses/Architectural Distortion: The patient is now status post left lumpectomy. Post therapeutic an d postsurgical changes are seen in the left breast. No suspicious masses are seen. Microcalcifications: No suspicious pleomorphic-type are seen. Skin Thickening/Nipple Retraction: None. IMPRESSION: 1. No significant interval change with no specific features of malignancy noted. 2. Unless there is more urgent need, screening mammography is recommended, as per [employer] guidelines. BI-RADS Category 2 - Benign Findings Breast Density - Category C - Heterogeneously dense Breast density category C or D implies that the patient has dense breast tissue. Dense breast tissue is very common and is not abnormal but dense breast tissue can make it harder to find cancer on a ma mmogram. Also, dense breast tissue may increase their breast cancer risk. This information about the result of the mammogram report was provided to the patient to raise their awareness. Use this report when you speak with the patient about their risks for breast cancer, which includes their family hist ory. At that time, you may recommend for more screening tests (Ultrasound or MRI) as they might be us eful based on their risk. A negative radiographic report should not delay biopsy if a dominant or clinically suspicious mass is present. Up to ten percent of cancers are not identified on mammography. A negative report may reinforce clinical impression. Adenosis and dense breasts may obscure an underlying neoplasm. False positive reports average 6 to 10%. Patient will receive a letter notifying them of these results.
== END 2022-08-01 01:08 ==
LOC: DI 00:51
PROVIDERS: PCP Internal Medicine; Visit Provider Nurse Practitioner Family
DX: Z12.31 Encounter for screening mammogram for malignant neoplasm of breast (principal)
CPT/HCPCS: 77063; 77067

== ENCOUNTER → 2022-09-01 09:22 | Outpatient (BNVA) | payer MEDICARE, OTHER, SELFPAY | PROVIDERS: PCP Internal Medicine; Referring Provider Internal Medicine; Visit Provider Physical Therapy Assistant | DX: Z12.11 Encounter for screening for malignant neoplasm of colon (principal) ==

== ENCOUNTER 2022-09-02 00:33 | Outpatient (CLI) | payer MEDICARE, OTHER, SELFPAY ==
--- NOTE | 2022-09-02 | DI.US_ITS ---
Exam(s) US THYROID EXAM: US THYROIDi CLINICAL HISTORY: F/U THYROID NODULE,E04.1. TECHNIQUE: Ultrasound thyroid performed using standard protocol. COMPARISON: Prior thyroid ultrasound examinations were reviewed, most recent being July 1021. FINDINGS: RIGHT THYROID LOBE: Measures 0.2 cm AP x 2.7 cm wide x 5.4 cm craniocaudal There are 3 findings again noted in the right thyroid lobe. The most superiorly is a 7 x 4 mm wider than taller nodule which is unchanged. With respect to the 2 larger nodules in the right lobe, the largest is centrally located and appears similar to previous. Specifics for this nodule are as follows... Size: Measures 3.3 x 1.9 x 3.0 cm Composition: Solid-2 points Echogenicity: Isoechoic to surrounding gland tissue-1 point Shape: Wider than taller in the transverse plane-0 points Margin: Smooth- 0 points Echogenic Foci: None-0 points Total Points for this nodule: 3 ACR Ti-Rads Category: TR3 This nodule should undergo ultrasound-guided FNA as it measures greater than 2.5 cm Nodule #2 located below the dominant nodule. Size: Measures 1.3 x 1.3 x 1.5 cm cm Composition: Solid-2 points Echogenicity: Isoechoic-1 point Shape: Width and height are equal in the transverse plane-0 points Margin: Smooth-0 points Echogenic Foci: None-0 points Total points for this nodule: 3 ACR Ti-Rads Category: TR3 This nodule can be followed as it is at the threshold for FNA. ISTHMUS: Normal thickness. There are no nodules in the isthmus. LEFT THYROID LOBE: Measures 1.3 cm AP x 1.5 wide x 3.1 cm craniocaudal Contains a peripherally located small benign colloid cyst Does not contain significant nodules. LYMPH NODES: There is no significant adenopathy. IMPRESSION: 1. Relatively stable thyroid ultrasound exam findings when compared to prior study listed above. The dominant-largest solid nodule in the right lobe is a TR3 nodule but qualifies for ultrasound-guided FNA as it measures greater than 2.5 cm. 2. Other findings can be followed conservatively. 3. There is no significant lymphadenopathy. DATA REPOSITORY:
== END 2022-09-02 00:53 ==
LOC: DI 00:36
PROVIDERS: PCP Internal Medicine; Visit Provider Nurse Practitioner Family
DX: E04.1 Nontoxic single thyroid nodule (principal)
CPT/HCPCS: 76536

== ENCOUNTER 2022-09-12 07:44 | Day surgery (SDC) | payer MEDICARE, OTHER, SELFPAY ==
--- NOTE | 2022-09-11 18:17 | W.COLOREPORT ---
Date of service: 09/12/22 Time of Service: 11:30 Colonoscopy Report Date of procedure: 09/12/22 Pre-op diagnosis general: Screening colonscopy Post-op diagnosis procedure note: other (Rectal polyp) Procedure: Colonoscopy with polypectomy Surgeon: Mateo Trujillo Anesthesia Type: General:No Airway Estimated blood loss (mL): 5 Pathology: other (Rectal polyp) Complications: None Disposition: same day Indications: Tere is 67 years old and she needs a screening colonoscopy Prep: Miralax/Dulcolax Procedure Start Time: 11:03 Procedure End Time: 11:21 Retraction Time: 10 Findings: Rectal polyp Procedure Description: After the induction of monitored anesthetic care, and with the patient in left lateral decubitus position, I began by performing an external anorectal exam.? Perineum and skin were normal, as was the anal verge.? There was no evidence of external hemorrhoids.? Next, I performed a digital rectal exam.? I did not appreciate any abnormal findings.? Next, I advanced a colonoscope into the rectal vault.? I performed retroflexion.? There was a single rectal polyp. It was less than 0.25 cm in size. It was sessile. I removed it with cold forcep polypectomy, and there was minimal bleeding..? Using insufflation, I then advanced the colonoscope beyond the rectal folds and into the sigmoid colon before advancing towards the cecum. The colon was a little tortuous, but we were able to maintain the true lumen, and advanced along the length of it.? The quality of the prep was excellent.? The scope was noted to be in the cecum by identification of the ileocecal valve and appendiceal orifice.? I then began withdrawing the colonoscope using repeated irrigation as necessary for full evaluation of the colonic mucosa. once the scope was withdrawn to the level of the rectum, great care was taken to examine portions of the rectal folds.? Finally, the scope was withdrawn and the patient was brought to the same-day surgery recovery unit as the anesthetic wore off. ?The findings and instructions were shared with the patient prior to discharge.
--- NOTE | 2022-09-11 18:18 | PDOC.DSDIS_ITS ---
Date of service: 09/12/22 Time of Service: 12:20 Discharge Plan Disposition Patient Disposition: Home Condition: Good Discharge Details Reason For Visit: Screening colonoscopy Attending Provider: Mateo Trujillo Primary Care Provider: Red Pizarro Home Meds and New Rx's Prescriptions: Continued aspirin 325 mg tablet 325 mg PO DAILY Emergen-C 1,000 mg powder effervescent in packet 1 packet PO DAILY coenzyme Q10 [Co Q-10] 10 mg capsule 10 mg PO ONCE cholecalciferol (vitamin D3) 10 mcg (400 unit) capsule 10 mcg PO DAILY warfarin 1 mg tablet 3 mg PO DAILY letrozole 2.5 mg tablet 2.5 mg PO DAILY Discontinued bisacodyl [Dulcolax (bisacodyl)] 5 mg tablet,delayed release (DR/EC) 5 mg PO ONCE Qty: 4 0RF Rx Instructions: Take per colonoscopy instructions provided by ordering providers office polyethylene glycol 3350 17 gram/dose powder 17 g PO ONCE Qty: 238 0RF Rx Instructions: Take per colonoscopy instructions provided by ordering providers office Discharge Instructions Instructions: Colorectal Polyps (GEN) Additional Instructions: Meghann, we were able to complete your colonoscopy today without any problems. I did find 1 polyp in your rectum. It was quite small, and I removed it completely. I will be in touch when I have the results of the polypectomy report. 1. If tolerated, consume a soft, low fiber diet for 1-2 days. 2. Do not drive, drink alcohol, operate machinery, make critical decisions, or do activities that require coordination or balance for 24 hours. 3. Because air was put into your colon during the procedure, expelling air from your rectum (passing gas or farting) is normal. 4. You may not have a bowel movement for 1-3 days because of the colonoscopy prep. This is normal. 5. Go directly to the emergency room if you notice any of the following: Develop chills (warm to touch), or if you have a thermometer and your temperature is above 101 Difficulty breathing or difficultly swallowing Persistent vomiting Severe abdominal pain, other than gas cramps Severe chest pain Black, tarry stools Any bleeding ? exceeding one tablespoon 6. Call your physician if the site where your intravenous was started becomes r ed, swollen, painful, and warm to touch. 7. Your physician has reviewed your pre-procedure medications. Please continue to take those medications as previously ordered. You will be given specific info rmation/education regarding any changes to your medications before leaving. Activity:: Activity as Tolerated Diet:: As Tolerated Discharge Orders Discharge Orders: Discharge Order (Routine); Ordered 09/11/22 Ordered By: Mateo Trujillo DS: Diagnosis Discharge Diagnosis (1) Screening for colon cancer: Status: Acute Asessment and Plan: Follow-up on polypectomy results
[2022-09-12 07:53] VITALS: BP 145/75; PULSE 74; RESP 16; TEMP 36.4; O2SAT 97
[2022-09-12] MEDS: Lactated Ringers 1,000 ML 80 ML IV (08:14)
--- NOTE | 2022-09-12 09:48 | W.ANESPRE ---
General Info Date of Service Date Performed: 09/12/22 Height: 5 ft 4 in Weight: 81.1 kg Body Mass Index (BMI): 30.7 Surgical Procedure: Operation Date: 09/12/22 09:50 Proposed Procedure Side Surgeon p Colonoscopy Mateo Trujillo MD Actual Procedure Side Surgeon p Colonoscopy Mateo Trujillo MD Pre-Op Diagnosis Post-Op Diagnosis Screening colonoscopy Meds Allergies and Home Medications Allergies Allergy/AdvReac Type Severity Reaction Status Date / Time No Known Allergies Allergy Unverified 09/12/22 08:02 Home Medication Medication Instructions Recorded aspirin 325 mg tablet 325 mg PO DAILY 02/27/20 ascorbic acid 1,000 1 packet PO DAILY 03/26/20 [id number] powder effervescent pack (Emergen-C) cholecalciferol (vitamin D3) 10 10 mcg PO DAILY 11/03/20 mcg (400 unit) capsule coenzyme Q10 10 mg capsule (Co 10 mg PO ONCE 11/03/20 Q-10) letrozole 2.5 mg tablet 2.5 mg PO DAILY 02/21/22 warfarin 1 mg tablet 3 mg PO DAILY 02/21/22 Current Visit Medications: Current Medications Generic Name Dose Route Start Last Admin Trade Name Freq PRN Reason Stop Dose Admin Hyoscyamine Sulfate 0.125 mg 09/11/22 18:21 Hyoscyamine 0.125 Mg Sl/Oral/Chew SL 10/11/22 18:20 DIRECTED PRN Ringer's Solution 1,000 mls @ 80 mls/hr 09/12/22 06:00 09/12/22 08:14 IV 10/09/22 23:59 80 mls/hr INFUSION SAVAGE Administration IV Miscellaneous Supplies 1 each 09/12/22 06:00 Iv Access IV 10/09/22 23:59 DIRECTED SAVAGE Ondansetron HCl 4 mg 09/11/22 18:21 Ondansetron 4 Mg/2 Ml Vial IVP 10/11/22 18:20 Q4H PRN PRN Nausea / Vomiting Sodium Chloride 0 ml 09/12/22 06:00 Normal Saline Flush 10 Ml Syr IV 10/09/22 23:59 PRN PRN Sodium Chloride 0 ml 09/12/22 06:00 Normal Saline 10 Ml Vial IJ 10/09/22 23:59 DIRECTED PRN Sterile Water 0 ml 09/12/22 06:00 Water,Injection,Sterile 10 Ml Vial IJ 10/09/22 23:59 DIRECTED PRN PFSH Active Problems Active Problems: Problem Status Onset Code Mentally challenged Thyroid nodule E04.1 Screening for colon cancer Z12.11 Mental disability F79 Breast cancer, left C50.912 Medical History Medical History DVT, bilateral lower limbs Tx with heperain Dysphagia Epilepsy Per sister she has a slight developmental delay, but is pretty with it, per sister she signs for self Esotropia, left eye Family history of breast cancer Left breast mass Leg edema Liver cyst Postop check Scoliosis Seizure disorder Dx at age 12yrs Per sister she hasnt had one in over 10 years Surgical History Surgical History Hx of colonoscopy (~04/2010) Status post left breast lumpectomy (~03/2020) with sentinel node bx, [place] Tobacco Smoking/Tobacco Use Status: Never Alcohol Alcohol Intake: current Alcohol intake frequency: 0-2 drinks per day Alcohol type: hard liquor Substance Use Substance use: Never Substance use type: does not use Details: alcohol: t-2, pt. had a Susanne drink for her birthday Vital Signs and Lab Results Vital Signs Most Recent Vital Signs in EMR: Most Recent Vital Signs Temp Pulse Resp BP Pulse Ox 36.4 C L 74 16 145/75 H 97 09/12/22 07:53 09/12/22 07:53 09/12/22 07:53 09/12/22 07:53 09/12/22 07:53 Lab Results Blood Type / Crossmatch: No Data to Display Complete Blood Count: No Data to Display Complete Metabolic Panel: No Data to Display Liver Function Panel: No Data to Display Coagulation Panel: No Data to Display Cardiac Panel: No Data to Display Arterial Blood Gas: No Data to Display Venous Blood Gas: No Data to Display Pancreas Panel: No Data to Display Thyroid Panel: No Data to Display Infectious Disease: No Data to Display Blood Cultures: No Data to Display Toxicology Panel: No Data to Display Anesthesia Assessment and Plan Anesthesia History Personal History: No History of Anesthesia Complications Family History: No Family History of Anesthesia Complications Exercise Tolerance Exercise Tolerance: Metabolic Equivalents>4 Pertinent Negatives Pertinent Negatives: No Symptoms of GERD, No Major Cardiovascular Symptoms or Complaints, No Major Pulmonary Symptoms or Complaints and No History of CVA/TIA Cardiac & Pulmonary Exam Cardiac Exam: Normal S1/S2 Heart Sounds Pulmonary Exam: Clear Bilateral Breath Sounds Implantable Cardiac Device Does patient have a Pacemaker or an ICD?: No Airway Exam Known Difficult Airway: No Mallampati Class: 1 Mouth Opening: Normal (> 3cm) Thyromental Distance: Greater than 3 cm Neck Range of Motion: Full ROM Neck Circumference: Normal Teeth Condition: Normal Dentition and Generalized Poor Dentition ASA Classification ASA Score: ASA 2 Emergency Case?: No NPO Status NPO Status: NPO Clears >2 hours, Solids >8 hours Anesthesia Plan Resuscitation Status: Full Code Anesthesia Technique: General Anesthesia Airway Planned: Natural Airway Monitors Used: Standard Monitors
[2022-09-12 09:50] VITALS: BMI 30.7
[2022-09-12 10:26] LABS: Prothrombin Time 12.7 sec (9.3-11.0)
[2022-09-12 10:27] LABS: INR 1.2 (0.9-1.1)
--- NOTE | 2022-09-12 11:05 | BOWEL_PTH ---
PATIENT: Tere Carr LOC: [facility] U#:[id number] AGE/SX: 67/F ROOM: RE09/12/[address]: Mateo Trujillo MD : [id number] BED: DIS: 09/12/2022 SPEC #: [id number] RECD: 09/12/22 13:14 STATUS: ESA REQ #: [id number] LENNIE: 09/12/22 11:[address]: Mateo Trujillo DEPT: Surgical Specimen RECD BY: Geni Rodrigues ENTERED: 09/12/22 13:14 SP TYPE: Bowel OTHR DR: Red Pizarro Tissues: 1 - BIOPSY BOWEL Procedures: GROSS AND MICRO LEVEL 4 Comments: [id number]
[2022-09-12 11:29] VITALS: BP 90/57; PULSE 61; RESP 17; TEMP 36.5; O2SAT 96
[2022-09-12] MEDS: Hyoscyamine 0.125 MG SL/ORAL/CHEW SL (11:47)
[2022-09-12 12:00] VITALS: BP 140/87; PULSE 65; RESP 17; TEMP 36.6; O2SAT 97
--- NOTE | 2022-09-12 15:00 | W.ANESPOSTOP ---
Postoperative Evaluation Date, Time and Location Date Performed: 09/12/22 Time Performed: 15:00 Patient Location: Day Surgery Unit Vital Signs Most Recent Imported Vital Signs: Most Recent Vital Signs Temp Pulse Resp BP Pulse Ox 36.6 C 65 17 140/87 97 09/12/22 12:00 09/12/22 12:00 09/12/22 12:00 09/12/22 12:00 09/12/22 12:00 Pain Score Most Recent Pain Score: Most Recent Pain Score Pain Level 4 09/12/22 12:00 Assessment Mental Status: Awake (Alert & Oriented to Patient Baseline) Airway and Respiratory Function: Patent airway with normal (patient baseline) respiratory exam Cardiovascular Function: Hemodynamically Stable Hydration Status: Adequately Hydrated Nausea & Vomiting: No Nausea or Vomiting Pain: Pt. Denies Any Pain Peripheral Nerve Block: Patient did not receive a nerve block Postoperative Comments:: Patient seen earlier today and was doing well. Appropriate for discharge.
== END 2022-09-12 12:40 | disposition home or self-care (01) ==
PROVIDERS: PCP Internal Medicine; Visit Provider Surgery
PROC: 0DJD8ZZ Inspection of Lower Intestinal Tract, Via Natural or Artificial Opening Endoscopic (ICD-10-PCS; CPT 45378; principal; 2022-09-12 09:45)
DX: Z12.11 Encounter for screening for malignant neoplasm of colon (principal); D12.8 Benign neoplasm of rectum; Z79.01 Long term (current) use of anticoagulants
CPT/HCPCS: 45380; 36415; 88305; 85610; J3490

== ENCOUNTER 2023-06-21 16:53 | Outpatient (REF) | payer MEDICARE, OTHER, SELFPAY ==
[2023-06-21 21:25] LABS: INR 2.7 (0.9-1.1); PTT Activated 37.3 sec (23.6-32.8); Prothrombin Time 24.5 sec (9.1-11.1)
[2023-06-21 21:42] LABS: ALT 20 U/L (14-59); AST 17 U/L (15-37); Albumin 3.8 g/dL (3.4-5.0); Alkaline Phosphatase 117 U/L (46-116); Anion Gap 9.2 mmol/L (3-11); BUN 16 mg/dL (7-18); Bilirubin, Total 0.3 mg/dL (0.2-1.0); CO2 28.8 mmol/L (21.0-32.0); CREATININE 0.8 mg/dL (0.55-1.02); Calcium 9.5 mg/dL (8.5-10.1); Calculated LDL 114 mg/dL (<100); Chloride 105 mmol/L (98-107); Cholesterol 189 mg/dL (<200); Estimated GFR 79.22 (mL/min/1.73m2); Glucose 94 mg/dL (74-106); HDL Cholesterol 58 mg/dL (40-60); Potassium 4.3 mmol/L (3.5-5.1); Sodium 143 mmol/L (136-145); Total Protein 7.1 g/dL (6.4-8.2); Triglyceride 88 mg/dL (<150)
[2023-06-21 21:54] LABS: Vitamin D 25 Total 65.3 ng/mL (30-100)
== END 2023-06-21 16:54 | disposition home or self-care (01) ==
LOC: NCHCN 16:53
PROVIDERS: PCP Internal Medicine; Visit Provider Family Medicine
DX: I82.409 Acute embolism and thrombosis of unspecified deep veins of unspecified lower extremity (principal); Z00.00 Encounter for general adult medical examination without abnormal findings
CPT/HCPCS: 80053; 80061; 82306; 85610; 85730

== ENCOUNTER → 2023-08-17 00:28 | Outpatient (CLI) | payer MEDICARE, OTHER, SELFPAY ==
--- NOTE | 2023-08-17 11:07 | DI.MAMMO_ITS ---
Exam(s) MG MAMMO SCREENING 60 MIN DUR EXAM: MG MAMMO SCREENING 60 MIN DUR CLINICAL HISTORY: SCREENING BREAST CANCER Z12.39 PERS HX BREAST CANCER TECHNIQUE: Bilateral full field digital CC and MLO mammographic images were obtained with 3D tomosyn thesis and utilizing computer aided detection (CAD). COMPARISON: Available for comparison. FINDINGS: Masses/Architectural Distortion: Prior lumpectomy in the left breast. No suspicious masses or new ar eas of architectural distortion. Microcalcifications: No suspicious pleomorphic-type are seen. Skin Thickening/Nipple Retraction: None. IMPRESSION: 1. No significant interval change with no specific features of malignancy noted. 2. Unless there is more urgent need, screening mammography is recommended, as per [employer] guidelines. 3. Findings were discussed with the patient on the date of the examination. BI-RADS Category 2 - Benign Findings Breast Density - Category B - Scattered areas of fibroglandular density Breast density category C or D implies that the patient has dense breast tissue. Dense breast tissue is very common and is not abnormal but dense breast tissue can make it harder to find cancer on a ma mmogram. Also, dense breast tissue may increase their breast cancer risk. This information about the result of the mammogram report was provided to the patient to raise their awareness. Use this report when you speak with the patient about their risks for breast cancer, which includes their family hist ory. At that time, you may recommend for more screening tests (Ultrasound or MRI) as they might be us eful based on their risk. A negative radiographic report should not delay biopsy if a dominant or clinically suspicious mass is present. Up to ten percent of cancers are not identified on mammography. A negative report may reinforce clinical impression. Adenosis and dense breasts may obscure an underlying neoplasm. False positive reports average 6 to 10%. Patient will receive a letter notifying them of these results.
== END ==
PROVIDERS: PCP Internal Medicine; Visit Provider Nurse Practitioner Family
DX: Z12.31 Encounter for screening mammogram for malignant neoplasm of breast (principal); Z85.3 Personal history of malignant neoplasm of breast
CPT/HCPCS: 77063; 77067

== ENCOUNTER 2023-12-26 19:31 | Outpatient (REF) | payer MEDICARE, OTHER, SELFPAY ==
[2023-12-26 15:21] LABS: HCT 45.8 % (36.0-46.0); HGB 14.8 g/dL (11.2-15.7); MCH 28.8 pg (27.0-33.0); MCHC 32.3 % (32.0-36.0); MCV 89 fL (80-95); MPV 11.5 fL (8.0-11.0); Platelet Count 299 10^3/uL (130-400); RBC 5.14 10^6/uL (3.93-5.22); RDW 14.7 % (11.7-14.6); RDW-SD 48.1 fL; WBC 8.73 10^3/uL (4.4-10.8)
[2023-12-26 15:31] LABS: ALT 21 U/L (14-59); AST 17 U/L (15-37); Albumin 3.6 g/dL (3.4-5.0); Alkaline Phosphatase 106 U/L (46-116); Anion Gap 5.9 mmol/L (3-11); BUN 25 mg/dL (7-18); Bilirubin, Total 0.36 mg/dL (0.2-1.0); CO2 29.1 mmol/L (21.0-32.0); CREATININE 0.8 mg/dL (0.55-1.02); Calcium 9.3 mg/dL (8.5-10.1); Chloride 105 mmol/L (98-107); Estimated GFR 79.22 (mL/min/1.73m2); Glucose 96 mg/dL (74-106); Potassium 4.6 mmol/L (3.5-5.1); Sodium 140 mmol/L (136-145)
[2023-12-26 15:58] LABS: Hemoglobin A1C 5.7 % (<5.7)
== END 2023-12-26 19:32 | disposition home or self-care (01) ==
LOC: NCHCN 19:31
PROVIDERS: PCP Nurse Practitioner Family; Visit Provider Nurse Practitioner Family
DX: R73.01 Impaired fasting glucose (principal); Z85.3 Personal history of malignant neoplasm of breast
CPT/HCPCS: 80053; 85027; 83036

== ENCOUNTER 2024-01-04 02:19 | Outpatient (CLI) | payer MEDICARE, OTHER, SELFPAY ==
--- NOTE | 2024-01-04 | DI.DEXA_ITS ---
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 Left hip: Total T-Score: -1.2. This compares to -0.4 on the prior examination. Total Z-Score: 0.3 T- and Z-scores: Findings are consistent with osteopenia. Left forearm: Total T-Score: -2.7. This compares to -0.8 on the prior examination. Total Z-Score: -0.6 T- and Z-scores: Findings consistent with osteoporosis. IMPRESSION: Osteoporosis in the left forearm.
== END 2024-01-04 02:39 ==
LOC: DI 02:19
PROVIDERS: PCP Nurse Practitioner Family; Visit Provider Internal Medicine
DX: Z78.0 Asymptomatic menopausal state (principal); Z13.820 Encounter for screening for osteoporosis; M81.0 Age-related osteoporosis without current pathological fracture
CPT/HCPCS: 77080

== ENCOUNTER 2024-06-28 00:14 | Outpatient (CLI) | payer MEDICARE, OTHER, SELFPAY ==
--- NOTE | 2024-06-28 11:26 | DI.RAD_ITS ---
Exam(s) XR FOOT RT COMPLETE EXAM: XR FOOT RT COMPLETE CLINICAL HISTORY: PAIN RT FOOT M79.671. TECHNIQUE: 2D digital imaging was performed. Three views. COMPARISON: No exams were available for comparison FINDINGS: BONES: No acute fracture is present. No bony destructive lesion is seen. JOINTS: No dislocation present. There are severe degenerative changes at the 2nd and 3rd tarsal meta tarsal joints. Degenerative changes are also seen at the talonavicular and navicular 1st cuneiform j oint. Mild degenerative changes at the 1st MTP joint. Plantar arch is maintained. Hammertoe deform ity of the 2nd toe. SOFT TISSUE: Normal. IMPRESSION: Degenerative changes, greatest the 2nd and 3rd tarsal metatarsal joints. DATA REPOSITORY: RADIATION DOSE DELIVERED:
== END 2024-06-28 00:34 ==
LOC: DI 00:14
PROVIDERS: PCP Nurse Practitioner Family; Visit Provider Nurse Practitioner Family
DX: M79.671 Pain in right foot (principal)
CPT/HCPCS: 73630

== ENCOUNTER 2024-09-18 01:56 | Outpatient (CLI) | payer MEDICARE, OTHER, SELFPAY ==
--- NOTE | 2024-09-18 | DI.MAMMO_ITS ---
Exam(s) MG MAMMO SCREENING 60 MIN DUR EXAM: MG MAMMO SCREENING 60 MIN DUR CLINICAL HISTORY: Z12.39, Z85.3, Screening w/Personal HX malignant neoplasm of breast TECHNIQUE: Bilateral full field digital CC and MLO mammographic images were obtained with 3D tomosyn thesis and utilizing computer aided detection (CAD). COMPARISON: Comparison is made with prior examinations. FINDINGS: Masses/Architectural Distortion: No suspicious masses or areas of architectural distortion are presen t. The patient has had a prior left lumpectomy. Microcalcifications: No suspicious pleomorphic-type are seen. Skin Thickening/Nipple Retraction: None. IMPRESSION: 1. No significant interval change with no specific features of malignancy noted. 2. Unless there is more urgent need, screening mammography is recommended, as per [employer] guidelines. 3. Findings were discussed with the patient on the date of the examination. BI-RADS Category 2 - Benign Findings Breast Density - Category B - There are scattered areas of fibroglandular density. Breast density Category C or D implies that the patient has dense breast tissue. Dense breast tissue can make it harder to find cancer on a mammogram. Dense breast tissue is also associated with an incr eased risk of breast cancer. This information about the result of the mammogram report was provided to the patient to raise their awareness. Use this report when you speak with the patient about their risks for breast cancer, which includes their family history. At that time, you may recommend additional screening tests (Ultrasoun d or MRI) as these tests may add significant information. A negative radiographic report should not delay biopsy if a dominant or clinically suspicious mass is present. Up to ten percent of cancers are not identified on mammography. A negative report may reinforce clinical impression. Adenosis and dense breasts may obscure an underlying neoplasm. False positive reports average 6 to 10%. Patient will receive a letter notifying them of these results.
== END 2024-09-18 02:16 ==
LOC: DI 01:56
PROVIDERS: PCP Nurse Practitioner Family; Visit Provider Nurse Practitioner Family
DX: Z12.31 Encounter for screening mammogram for malignant neoplasm of breast (principal); R92.323 Mammographic fibroglandular density, bilateral breasts; Z85.3 Personal history of malignant neoplasm of breast
CPT/HCPCS: 77063; 77067

== ENCOUNTER 2024-11-16 12:59 | Observation (INO) | payer MEDICARE, OTHER, SELFPAY ==
[2024-11-16] VITALS (27 sets, daily range): BP systolic 120–147; BP diastolic 68–90; PULSE 57–76; RESP 13–21; TEMP 35.9–36.8; O2SAT 95–99
--- NOTE | 2024-11-16 13:00 | DI.CT_ITS ---
Exam(s) CT BRAIN NECK CTA EXAM: CT BRAIN NECK CTA CLINICAL HISTORY: speech and ataxia, breast ca and on coumadin. TECHNIQUE: Imaging Protocol: Axial CT angiography was performed with multi- slice acquisition and multi-planar and/or 3D reconstructions. CONTRAST MATERIAL: Intravenous: Omnipaque 350 contrast volume:70 mL COMPARISON: No exams were available for comparison FINDINGS: CT Head W/O and W: Ventricles and Extra axial spaces: Normal in size and morphology for the patient's age. Hemorrhage: None. Cerebral parenchyma: There is no evidence of an acute territorial infarct. No acute mass effect is present. Midline shift: None. Brainstem/Cerebellum: Normal. Calvarium: Normal. Visualized Paranasal sinuses/Mastoids: There is complete opacification of the sphenoid sinus with thickening of the wall consistent with chronic sinus disease. Soft Tissues: Unremarkable. Enhancement: Unremarkable. CTA Neck W: Common Carotid: Right: No dissection, occlusion or significant stenosis. Left: No dissection, occlusion or significant stenosis. External Carotid: Right: No occlusion or significant stenosis. Left: No occlusion or significant stenosis. Internal Carotid: Right: No dissection, occlusion or significant stenosis. Left: No dissection, occlusion or significant stenosis. Vertebral Artery: Right: No dissection, occlusion or significant stenosis. Left: No dissection, occlusion or significant stenosis. Lung Apices: Normal. Bones: Within normal limits for the patient's age. Soft Tissues: Normal. Thyroid gland: There is a heterogeneously enhancing 2.1 x 3.5 by 3.3 cm right thyroid nodule. Nonemergent thyroid ultrasound should be obtained for further characterization. CTA Brain W: Internal Carotid Arteries: There is no evidence of an aneurysm, occlusion or significant stenosis. Anterior Cerebral Arteries: Right: No aneurysm, occlusion or significant stenosis. Left: No aneurysm, occlusion or significant stenosis. Middle Cerebral Arteries: Right: No aneurysm, occlusion or significant stenosis. Left: No aneurysm, occlusion or significant stenosis. Posterior Cerebral Arteries: Right: No aneurysm, occlusion or significant stenosis. Left: No aneurysm, occlusion or significant stenosis. Vertebral Arteries: Right: No aneurysm, occlusion or significant stenosis. Left: No aneurysm, occlusion or significant stenosis. Basilar Artery: No aneurysm, occlusion or significant stenosis. IMPRESSION: 1. No large vessel occlusion or significant stenosis on the CT angiography of the head. 2. No acute intracranial process. 3. No occlusion or significant stenosis on the CT angiography of the neck. 4. 2.1 x 3.5 by 3.3 cm heterogeneously enhancing right thyroid nodule. Nonemergent thyroid ultrasound is recommended for further characterization. RADIATION DOSE DELIVERED: 2,143.11mGy.cm Total DLP DATA REPOSITORY: All CT scans at this facility are submitted to the National Radiology Data Registry (NRDR) Dose Index Registry (DIR) with the [employer] (A[employer]). RADIATION OPTIMIZATION: All CT scans at this facility use at least one of these dose optimization techniques: automated exposure control; mA and/or kV adjustment per patient size (includes targeted exams where dose is matched to clinical indication); or iterative reconstruction.
--- NOTE | 2024-11-16 13:00 | RT.EKG_ITS ---
APPROVED REPORT Exam: Resting ECG Reason for Exam: weakness Patient Location: E HR:72 bpm ECG Measurements Heart Rate 72 AXIS VA 140 P 62 QRSd 87 QRS 78 QT 388 T 20 QTc 425 Conclusion Sinus rhythm...normal P axis, V-rate 60- 99
[2024-11-16] MEDS: Normal Saline - Diluent 50 ML VIAL IJ (13:34)
[2024-11-16 13:36] LABS: Abs Immature Grans 0.02 10^3/uL (0.0-0.06); HCT 44.5 % (36.0-46.0); HGB 14.5 g/dL (11.2-15.7); Immature Grans % 0.3 %; MCH 28.7 pg (27.0-33.0); MCHC 32.6 % (32.0-36.0); MCV 88 fL (80-95); MPV 10.7 fL (8.0-11.0); Platelet Count 289 10^3/uL (130-400); RBC 5.06 10^6/uL (3.93-5.22); RDW 14.4 % (11.7-14.6); RDW-SD 46.3 fL; WBC 7.23 10^3/uL (4.4-10.8)
[2024-11-16] MEDS: Omnipaque 350 MG/ML 100 ML BTL 70 ML IJ (13:36)
--- NOTE | 2024-11-16 13:50 | DI.RAD_ITS ---
Exam(s) XR CHEST 1V IN DI DEPT EXAM: XR CHEST 1V IN DI DEPT CLINICAL HISTORY: ams TECHNIQUE: 2D digital imaging was performed of the chest. One image was obtained. An AP view was obtained. COMPARISON: CR XR CHEST 2V PA LATERAL from 03/10/2020 FINDINGS: MEDIASTINUM: Normal. HEART: Normal. PULMONARY VASCULATURE: Normal. LUNGS: Clear. PLEURAL SPACE: No pleural effusion or pneumothorax. BONE:Within normal limits for the patient's age. There is a right convex thoracic scoliosis. There is again seen a single marilin in place in the lower thoracic and upper lumbar spine. It is incompletely imaged on this examination. There are degenerative changes seen at the left glenohumeral joint. OTHER FINDINGS:Normal. IMPRESSION: No acute pulmonary findings. DATA REPOSITORY: RADIATION DOSE DELIVERED:
[2024-11-16 13:54] LABS: ALT 22 U/L (14-59); AST 17 U/L (15-37); Albumin 3.7 g/dL (3.4-5.0); Alkaline Phosphatase 105 U/L (46-116); Anion Gap 9.7 mmol/L (3-11); BUN 26 mg/dL (7-18); Bilirubin, Total 0.4 mg/dL (0.2-1.0); CO2 27.3 mmol/L (21.0-32.0); Calcium 8.7 mg/dL (8.5-10.1); Chloride 103 mmol/L (98-107); Estimated GFR 53.72 (mL/min/1.73m2); Glucose 124 mg/dL (74-106); Magnesium 2.0 mg/dL (1.8-2.4); Potassium 3.8 mmol/L (3.5-5.1); Sodium 140 mmol/L (136-145); Total Protein 7.5 g/dL (6.4-8.2); Troponin I 6 ng/L (<or=51)
--- NOTE | 2024-11-16 14:52 | W.ED.GENAD ---
Discharge Plan Discharge Details Chief Complaint: CVA/TIA Primary Care Provider: Marycarmen Vizcarra ED Provider: Geni Gonzalez Home Meds and New Rx's Prescriptions: No Action aspirin 325 mg tablet 325 mg PO DAILY Emergen-C 1,000 mg powder effervescent in packet 1 packet PO DAILY coenzyme Q10 [Co Q-10] 10 mg capsule 10 mg PO ONCE cholecalciferol (vitamin D3) 10 mcg (400 unit) capsule 10 mcg PO DAILY warfarin 1 mg tablet 4 mg PO DAILY Patient Comments: take 4 1mg tablets (4mg total) letrozole 2.5 mg tablet 2.5 mg PO DAILY HPI General Date/Time Provider Initiated Documentation: 11/16/24 13:00. HPI Narrative: 69-year-old female with breast cancer and DVT on letrozole and Coumadin presents with acute left-sided weakness, difficulty speaking, and gait abnormality starting at 1230 hours today. Episode lasted 30 minutes, witnessed by sister, resolved speech and balance. No similar symptoms previously, history of absence seizures but different due to inability to communicate. No medication changes or recent trauma. No dysrhythmias, regular Coumadin use, no falls, injuries, or headache. No hypertension, hyperlipidemia, or metastases from breast cancer. Related Data Home Medications ?Medication ?Instructions ?Recorded ?Confirmed aspirin 325 mg tablet 325 mg PO DAILY 02/27/20 11/16/24 Held on 11/16/24. Instructions: Pt Stopped/Never Started ascorbic acid 1,000 1 packet PO DAILY 03/26/20 11/16/24 [id number] powder effervescent pack (Emergen-C) Held on 11/16/24. Instructions: Pt Stopped/Never Started cholecalciferol (vitamin D3) 10 10 mcg PO DAILY 11/03/20 11/16/24 mcg (400 unit) capsule coenzyme Q10 10 mg capsule (Co 10 mg PO ONCE 11/03/20 11/16/24 Q-10) Held on 11/16/24. Instructions: Pt Stopped/Never Started letrozole 2.5 mg tablet 2.5 mg PO DAILY 02/21/22 11/16/24 Held on 11/16/24. Instructions: Pt Stopped/Never Started warfarin 1 mg tablet 4 mg PO DAILY 02/21/22 11/16/24 Allergies Allergy/AdvReac Type Severity Reaction Status Date / Time No Known Allergies Allergy Unverified 11/16/24 13:11 General Stated Complaint: CVA/TIA PITER: 2 Exam Narrative Exam Narrative: General Appearance: Alert and oriented. Vital signs: Vitals stable. HEENT: Pupils equal, round, reactive to light and accommodation. EOMI. Oropharynx patent, uvula midline, speaking in complete sentences. Respiratory: Lungs clear to auscultation, no respiratory distress. Cardiovascular: Regular cardiac rate and rhythm. Neurological: Cranial nerves II-XII intact. Negative pronator drift, heel-walters, [id number] tests. Course Vital Signs Vital signs: Vital Signs Temperature 36.8 C 11/16/24 13:03 Pulse 76 11/16/24 13:03 Respiratory Rate 16 11/16/24 13:03 Blood Pressure 120/75 11/16/24 13:03 Pulse Oximetry 95 11/16/24 13:03 Temperature 36.8 C 11/16/24 13:03 Pulse 67 11/16/24 14:30 Pulse 67 11/16/24 14:30 Respiratory Rate 16 11/16/24 14:34 Respiratory Effort Normal 11/16/24 14:34 Respiratory Depth Normal 11/16/24 14:34 Respiratory Pattern Normal 11/16/24 14:34 Blood Pressure 120/75 11/16/24 13:03 Blood Pressure Position Sitting 11/16/24 13:03 Pulse Oximetry 95 11/16/24 14:30 Oxygen Delivery Method Room Air 11/16/24 13:03 Oxygen Flow Rate 0 11/16/24 13:03 Pain Level 0 11/16/24 14:34 Lab/Test Results Lab/Test Results: Laboratory Tests Range/Units 11/16/24 13:34 WBC (4.4-10.8) 10^3/uL 7.23 RBC (3.93-5.22) 10^6/uL 5.06 Hgb (11.2-15.7) g/dL 14.5 Hct (36.0-46.0) % 44.5 MCV (80-95) fL 88 MCH (27.0-33.0) pg 28.7 MCHC (32.0-36.0) % 32.6 RDW (11.7-14.6) % 14.4 Plt Count (130-400) 10^3/uL 289 MPV (8.0-11.0) fL 10.7 Immature Gran % % 0.3 Neutrophils % % 55.9 Lymphocytes % % 32.2 Monocytes % % 9.4 Eosinophils % % 1.5 Basophils % % 0.7 Nucleated RBC % (0.0-0.3) % 0.0 Absolute Neutrophils (1.2-6.7) 10^3/uL 4.04 Absolute Lymphocytes (1.2-3.4) 10^3/uL 2.33 Absolute Monocytes (0.1-0.8) 10^3/uL 0.68 Absolute Eosinophils (0.0-0.7) 10^3/uL 0.11 Absolute Basophils (0.0-0.2) 10^3/uL 0.05 Sodium (136-145) mmol/L 140 Potassium (3.5-5.1) mmol/L 3.8 Chloride (98-107) mmol/L 103 Carbon Dioxide (21.0-32.0) mmol/L 27.3 Anion Gap (3-11) mmol/L 9.7 BUN (7-18) mg/dL 26 H Creatinine (0.55-1.02) mg/dL 1.1 H Est GFR (CKD-EPI 2020) (mL/min/1.73m2) 53.72 Glucose (74-106) mg/dL 124 H Calcium (8.5-10.1) mg/dL 8.7 Magnesium (1.8-2.4) mg/dL 2.0 Total Bilirubin (0.2-1.0) mg/dL 0.4 AST (15-37) U/L 17 ALT (14-59) U/L 22 Alkaline Phosphatase (46-116) U/L 105 Troponin I (<or=51) ng/L 6 Total Protein (6.4-8.2) g/dL 7.5 Albumin (3.4-5.0) g/dL 3.7 Medical Decision Making Initial Assessment: 69-year-old female with breast cancer and DVT on letrozole and Coumadin, presenting with acute left-sided weakness, difficulty speaking, and gait abnormality lasting 30 minutes, resolved completely. No similar symptoms, hypertension, hyperlipidemia, or recent trauma. Differential Diagnosis: - TIA: Acute onset, resolved completely. CTA head and neck: No acute pathology. Admit for observation. - Absence seizures: History but different presentation, unlikely due to inability to communicate. ED Course: - CTA head and neck: No acute pathology. - No additional anticoagulation due to current Coumadin use. -Discussed with hospitalist for admission purposes and initially the patient's symptoms were thought to be resolved ambulated in, however she still has a slightly ataxic gait I think she would benefit from admission for observation -Spoke with admitting hospitalist and recommendation for teleneuro at this point although patient is likely not a candidate for any lytics secondary to Coumadin and breast cancer history -On arrival pending at this time we will not administer aspirin as patient is anticoagulated with an INR of 2.6 -Specifically discussed with sister regarding whether or not this might be a seizure and sister states this is very atypical and she is not seeing this presentation with patient's absence seizures in the past -Vitals stable Final Assessment: Acute left-sided weakness, difficulty speaking, and gait abnormality lasting 30 minutes, resolved completely. CTA head and neck: No acute pathology. No additional anticoagulation due to current Coumadin use. Clinical Impression: - TIA Disposition: - Admit for observation due to acute onset and resolution. MDM Components Evaluation: - Number of Differential Diagnoses or Management Options: TIA, Absence seizures - Amount and Complexity of Data Reviewed: CTA head and neck - Risk of Complication and Morbidity or Mortality: Moderate risk due to acute neurological symptoms and history of DVT and breast cancer. PFSH All Active Problems (Updated 09/23/22 @ 10:53 by Caroline Freeman CMA) Tubular adenoma (Acute ~09/2022) Mentally challenged (Acute) Thyroid nodule (Acute) Screening for colon cancer (Acute) Mental disability (Acute) Breast cancer, left (Acute) Medical History (Updated 09/23/22 @ 10:53 by Caroline Freeman CMA) Liver cyst Postop check Epilepsy Per sister she has a slight developmental delay, but is pretty with it, per sister she signs for self Leg edema Esotropia, left eye Left breast mass Family history of breast cancer Scoliosis Dysphagia DVT, bilateral lower limbs Tx with heperain Seizure disorder Dx at age 12yrs Per sister she hasnt had one in over 10 years Surgical History (Updated 09/23/22 @ 10:53 by Caroline Freeman CMA) History of colonoscopy with polypectomy (~09/2022) Status post left breast lumpectomy (~03/2020) with sentinel node bx, [place] Hx of colonoscopy (~04/2010) Family History Mother Breast cancer Dx 50s Sister Breast cancer Dx 40s Sister No problems noted. Social History (Updated 09/07/22 @ 09:09 by SUNITA Bunch) Smoking/Tobacco Use Status: Never Smoking risk assessment performed?: Yes Alcohol Intake: current Alcohol Intake frequency: 0-2 drinks per day Alcohol type: hard liquor Drug use: Never Substance use type: does not use Details: alcohol: t-2, pt. had a Susanne drink for her birthday Housing: house Do you feel safe at home: Yes Do you feel safe in your relationship?: Yes Additional Social history: unable to assess privately
[2024-11-16 14:58] LABS: Troponin I 7 ng/L (<or=51)
[2024-11-16 15:15] LABS: Lab Add On Test DONE
[2024-11-16 15:31] LABS: INR 2.6 (0.9-1.1); Prothrombin Time 24.4 sec (9.1-11.1)
[2024-11-16 15:32] LABS: Glucose Negative (Negative)
[2024-11-16 15:38] LABS: C & S Indicated? No; RBC 0-2 HPF (0-2); WBC Negative HPF (0-5)
--- NOTE | 2024-11-16 16:42 | HPE_ITS ---
Date of service: 11/16/24 Time of Service: 16:42 Assessment and Plan Assessment and plan (1) Aphasic disturbance: Status: Acute Assessment and plan: DDx includes seizure, TIA/CVA, and presyncopal type event. CTA reassuring as is EKG/troponin ABCD2 score would be 4, moderate risk Case reviewed with teleneurologist, recommended starting keppra (tegretol interacts with warfarin) and doing MRI for TIA/CVA. If this is positive, would do full work up including prolonged athletic monitor and echo possibly with bubble given her DVT. However less c/w TIA/CVA per teleneuro assessment. tele monitoring PT consult (2) Seizure disorder: Assessment and plan: As above, possible recurrent seizure. Starting Keppra (3) Dysphagia: Assessment and plan: A/w spinal surgery/scoliosis. No dysphagia diet, does fine with slow eating on her own. (4) DVT, bilateral lower limbs: Assessment and plan: Warfarin at goal, continue home dosing and follow INRs. History of Present Illness History of Present Illness Chief Complaint: aphasia/ataxic episode Narrative: 69 yo F with history of mild intellectual disability, seizure disorder with h/o abscence seizures not on therapy, breast cancer, and history of DVT on warfarin who presented after an episode of unresponsiveness witnessed by her sister. She was coming back in from bringing out recycling around 12:30pm when her sister noted she was just standing there not responding or letting go of the bin. She tilted to the right against the doorway. After a few minutes, she started to speak, but her voice was garbled. The symptoms lasted 30-60 minutes, but even after that when walking to the toilet in the ED, she was noted she was listing to the left. At the time of my exam around 4pm, the sister stated she was just sounding totally normal to her now for the first time. Tere does not remember the episode. She never had focal weakness or numbness or facial droop. No abnormal seizure-like movements noted. She has a remote history of generalized seizures and a more recent history of abscence seizures. They seemed to stop after menopause, and she hasn't taken any antiepileptic meds in years or had a seizure. She was previously on tegretol. She hasn't changed any medications recently or had any stressors. Her blood clot was over a year ago, and her warfarin has been in range the last 2 visits. Review of Systems All systems reviewed & are unremarkable except as noted in HPI and below PFSH All Active Problems (Updated 11/16/24 @ 17:05 by Yash Lepe) Aphasic disturbance (Acute) Tubular adenoma (Acute ~09/2022) Thyroid nodule (Acute) Mental disability (Acute) Mentally challenged (Acute) Medical History (Updated 11/16/24 @ 17:05 by Yash Lepe) Breast cancer, left Liver cyst Postop check Epilepsy Per sister she has a slight developmental delay, but is pretty with it, per sister she signs for self Leg edema Esotropia, left eye Family history of breast cancer Scoliosis Dysphagia DVT, bilateral lower limbs Tx with heperain, clot did not resolve on enoxaparin Seizure disorder Dx at age 12yrs Per sister she hasnt had one in over 10 years Surgical History History of colonoscopy with polypectomy (~09/2022) Status post left breast lumpectomy (~03/2020) with sentinel node bx, [place] Hx of colonoscopy (~04/2010) Family History Mother Breast cancer Dx 50s Sister Breast cancer Dx 40s Sister No problems noted. Social History (Updated 11/16/24 @ 16:59 by Yash Lepe) Smoking/Tobacco Use Status: Never Smoking risk assessment performed?: Yes Alcohol Intake: current Alcohol Intake frequency: 0-2 drinks per day Alcohol type: hard liquor Details: 1 small drink/day Drug use: Never Substance use type: does not use Housing: house Do you feel safe at home: Yes Do you feel safe in your relationship?: Yes Additional Social history: Lives with sister and ABDIEL in [facility] on property in [place] Exercise daily Meds Allergies and Home Medications Allergies Allergy/AdvReac Type Severity Reaction Status Date / Time No Known Allergies Allergy Unverified 11/16/24 13:11 Home Medications ?Medication ?Instructions ?Recorded ?Confirmed ?Type aspirin 325 mg tablet 325 mg PO DAILY 02/27/2001/02 History Held on 11/16/24. Instructions: Pt Stopped/Never Started ascorbic acid 1,000 1 packet PO DAILY 03/26/20 0 11/16/24 History [id number]-[id number] powder effervescent pack (Emergen-C) Held on 11/16/24. Instructions: Pt Stopped/Never Started cholecalciferol (vitamin D3) 10 10 mcg PO DAILY 11/16/24 History mcg (400 unit) capsule coenzyme Q10 10 mg capsule (Co 10 mg PO ONCE 11/03/20 11/16/24 History Q-10) Held on 11/16/24. Instructions: Pt Stopped/Never Started letrozole 2.5 mg tablet 2.5 mg PO DAILY 02/21/2201/02 History Held on 11/16/24. Instructions: Pt Stopped/Never Started warfarin 1 mg tablet 4 mg PO DAILY 02/21/2211/16 History Exam Narrative Exam Narrative: GEN: Alert and oriented x 4, pleasant and cooperative, gives history but vague, doesn't remember actual event, sister fills in details. No acute distress at rest. HEENT: Head atraumatic. Conjunctiva clear, no icterus. PERRL, EOMI right, left exophoria. no rhinorrhea. MMM, OP benign. Neck is supple with no masses or lymphadenopathy, trachea midline LUNGS: CTAB with normal effort CV: RRR with no murmurs, gallops, or rubs. ABD: active bowel sounds, soft, nontender and nondistended. No masses. EXT: no cyanosis, clubbing. 1+ ankle edema on left, none right (chronic) MSK: No joint redness or swelling NEURO: CN 2-12 grossly intact x left eye. Visual hull intact to confrontation. Negative pronator drift. Normal FNF. Normal movement of 4 extremities, normal sensation to light touch, symmetric DTRs, nl tone. Normal speech. No tremor SKIN: No rashes or open wounds. PSYCH: normal mood and affect Results Imaging Chest x-ray: report reviewed (No acute pulmonary findings. ) and image reviewed EKG: report reviewed and image reviewed (NSR 72, nl axis, intervals, nl ekg) Imaging Studies: CTA head/neck: 1. No large vessel occlusion or significant stenosis on the CT angiography of the head. 2. No acute intracranial process. 3. No occlusion or significant stenosis on the CT angiography of the neck. 4. 2.1 x 3.5 by 3.3 cm heterogeneously enhancing right thyroid nodule. Nonemergent thyroid ultrasound is recommended for further characterization. Labs 11/16/24 13:34 11/16/24 13:34 Labs: Laboratory Results - last 24 hr 11/16/24 11/16/24 11/16/24 13:18 13:34 14:38 WBC 7.23 RBC 5.06 Hgb 14.5 Hct 44.5 MCV 88 MCH 28.7 MCHC 32.6 RDW 14.4 Plt Count 289 MPV 10.7 Immature Gran % 0.3 Neutrophils % 55.9 Lymphocytes % 32.2 Monocytes % 9.4 Eosinophils % 1.5 Basophils % 0.7 Nucleated RBC % 0.0 Absolute Neutrophils 4.04 Absolute Lymphocytes 2.33 Absolute Monocytes 0.68 Absolute Eosinophils 0.11 Absolute Basophils 0.05 PT 24.4 H INR 2.6 H Sodium 140 Potassium 3.8 Chloride 103 Carbon Dioxide 27.3 Anion Gap 9.7 BUN 26 H Creatinine 1.1 H Est GFR (CKD-EPI 2020) 53.72 Glucose 124 H Calcium 8.7 Magnesium 2.0 Total Bilirubin 0.4 AST 17 ALT 22 Alkaline Phosphatase 105 Troponin I 6 7 Total Protein 7.5 Albumin 3.7 Urine Color Urine Clarity Urine pH Ur Specific [place] Urine Protein Urine Ketones Urine Blood Urine Nitrite Urine Bilirubin Urine Urobilinogen Ur Leukocyte Esterase Urine RBC Urine WBC Ur Epithelial Cells Urine Crystals Urine Bacteria Urine Mucus Ur Culture Indicated? Urine Glucose Add-On Test Request DONE 11/16/24 15:25 WBC RBC Hgb Hct MCV MCH MCHC RDW Plt Count MPV Immature Gran % Neutrophils % Lymphocytes % Monocytes % Eosinophils % Basophils % Nucleated RBC % Absolute Neutrophils Absolute Lymphocytes Absolute Monocytes Absolute Eosinophils Absolute Basophils PT INR Sodium Potassium Chloride Carbon Dioxide Anion Gap BUN Creatinine Est GFR (CKD-EPI 2020) Glucose Calcium Magnesium Total Bilirubin AST ALT Alkaline Phosphatase Troponin I Total Protein Albumin Urine Color Yellow Urine Clarity Clear Urine pH 6.0 Ur Specific [place] 1.010 Urine Protein Negative Urine Ketones Negative Urine Blood Trace-intact H Urine Nitrite Negative Urine Bilirubin Negative Urine Urobilinogen 0.2 Ur Leukocyte Esterase Negative Urine RBC 0-2 Urine WBC Negative Ur Epithelial Cells Rare Urine Crystals Negative Urine Bacteria Negative Urine Mucus Negative Ur Culture Indicated? No Urine Glucose Negative Add-On Test Request Last Vital Signs Temp 36.8 C 11/16/24 13:03 Pulse 67 11/16/24 15:20 Resp 18 11/16/24 15:20 BP 120/75 11/16/24 13:03 Pulse Ox 96 11/16/24 15:20 Time Spent Time spent with Patient: 55-74 minutes Time was spent: preparing to see the patient(eg.review tests), obtaining and/or reviewing separately otained hiistory, ordering medications,tests, procedures, referring, communicating with other health adult live in caregiver, indepentently interpreting results, counseling the patient and care coordination
[2024-11-16 17:10] LABS: Troponin I 6 ng/L (<or=51)
--- NOTE | 2024-11-16 18:24 | W.PC.ACHO ---
Registration Status: ADM AWAIS Primary Language: Preferred Language: Armenian ED Information & Data Chief Complaint CVA/TIA 11/16/24 14:55 Triage Note Pt reports that she is weak 11/16/24 13:03 on L side with difficulty balancing. Pt sister states that 30 min ago she was unable to talk and had a more difficult time balancing but it has partly resolved. LKW: 12:35 PMH: DVTs, epilepsy, prediabetes Medical / Surgical History (Last Updated 11/16/24 @ 16:57 by Yash Lepe) Breast cancer, left DVT, bilateral lower limbs Dysphagia Epilepsy Esotropia, left eye Family history of breast cancer Leg edema Liver cyst Postop check Scoliosis Seizure disorder (Last Reviewed 11/16/24 @ 16:56 by Yash Lepe) History of colonoscopy with polypectomy (~09/2022) Hx of colonoscopy (~04/2010) Status post left breast lumpectomy (~03/2020) Most Recent Vital Signs Temperature 35.9 C L 11/16/24 17:11 Pulse 57 L 11/16/24 17:11 Pulse Rhythm Regular 11/16/24 17:11 Pulse 61 11/16/24 16:50 Respiratory Rate 16 11/16/24 17:11 Respiratory Effort Normal, Non-Labored 11/16/24 17:11 Respiratory Depth Normal 11/16/24 17:11 Respiratory Pattern Normal 11/16/24 17:11 Blood Pressure 143/76 H 11/16/24 17:11 Blood Pressure Position Sitting 11/16/24 13:03 Pulse Oximetry 96 11/16/24 17:11 Oxygen Delivery Method Room Air 11/16/24 17:11 Oxygen Flow Rate 0 11/16/24 17:11 Pain Level 0 11/16/24 18:14 Allergies No Known Allergies Allergy (Unverified 11/16/24 13:11) Active Medications Generic Name Dose Route Start Last Admin Trade Name Freq PRN Reason Stop Dose Admin Iohexol 70 ml 11/16/24 13:45 11/16/24 13:36 Omnipaque 350 Mg/Ml 100 Ml Btl IJ 12/16/24 23:59 70 ml DIRECTED SAVAGE Administration Sodium Chloride 50 ml 11/16/24 13:45 11/16/24 13:34 Normal Saline - Diluent 50 Ml Vial IJ 50 ml .FOR DI USE SAVAGE Administration IV IV Catheter Type [Right Saline Lock Antecubital] IV Catheter Gauge [Right 18 Antecubital] Diet Orders Category Date Time Status Regular/Normal [DIET] Nutrition 11/16/24 Dinner Active Diagnostics 11/16/24 11/16/24 11/16/24 Range/Units 16:42 15:25 14:38 WBC (4.4-10.8) 10^3/uL RBC (3.93-5.22) 10^6/uL Hgb (11.2-15.7) g/dL Hct (36.0-46.0) % MCV (80-95) fL MCH (27.0-33.0) pg MCHC (32.0-36.0) % RDW (11.7-14.6) % Plt Count (130-400) 10^3/uL MPV (8.0-11.0) fL Immature Gran % % Neutrophils % % Lymphocytes % % Monocytes % % Eosinophils % % Basophils % % Nucleated RBC % (0.0-0.3) % Absolute Neutrophils (1.2-6.7) 10^3/uL Absolute Lymphocytes (1.2-3.4) 10^3/uL Absolute Monocytes (0.1-0.8) 10^3/uL Absolute Eosinophils (0.0-0.7) 10^3/uL Absolute Basophils (0.0-0.2) 10^3/uL PT (9.1-11.1) sec INR (0.9-1.1) Sodium (136-145) mmol/L Potassium (3.5-5.1) mmol/L Chloride (98-107) mmol/L Carbon Dioxide (21.0-32.0) mmol/L Anion Gap (3-11) mmol/L BUN (7-18) mg/dL Creatinine (0.55-1.02) mg/dL Est GFR (CKD-EPI 2020) (mL/min/1.73m2) Glucose (74-106) mg/dL Calcium (8.5-10.1) mg/dL Magnesium (1.8-2.4) mg/dL Total Bilirubin (0.2-1.0) mg/dL AST (15-37) U/L ALT (14-59) U/L Alkaline Phosphatase (46-116) U/L Troponin I 6 7 (<or=51) ng/L Total Protein (6.4-8.2) g/dL Albumin (3.4-5.0) g/dL Urine Color Yellow (Yellow) Urine Clarity Clear (Clear) Urine pH 6.0 (5-8) Ur Specific [place] 1.010 (1.005-1.025) Urine Protein Negative (Neg-Trace) mg/dL Urine Ketones Negative (Negative) mg/dL Urine Blood Trace-intact H (Negative) Urine Nitrite Negative (Negative) Urine Bilirubin Negative (Negative) Urine Urobilinogen 0.2 (Up to 0.2) mg/dL Ur Leukocyte Esterase Negative (Negative) Urine RBC 0-2 (0-2) HPF Urine WBC Negative (0-5) HPF Ur Epithelial Cells Rare (Negative) HPF Urine Crystals Negative (Negative) HPF Urine Bacteria Negative (Negative) HPF Urine Mucus Negative (Negative) Ur Culture Indicated? No Urine Glucose Negative (Negative) mg/dL Add-On Test Request 11/16/24 11/16/24 Range/Units 13:34 13:18 WBC 7.23 (4.4-10.8) 10^3/uL RBC 5.06 (3.93-5.22) 10^6/uL Hgb 14.5 (11.2-15.7) g/dL Hct 44.5 (36.0-46.0) % MCV 88 (80-95) fL MCH 28.7 (27.0-33.0) pg MCHC 32.6 (32.0-36.0) % RDW 14.4 (11.7-14.6) % Plt Count 289 (130-400) 10^3/uL MPV 10.7 (8.0-11.0) fL Immature Gran % 0.3 % Neutrophils % 55.9 % Lymphocytes % 32.2 % Monocytes % 9.4 % Eosinophils % 1.5 % Basophils % 0.7 % Nucleated RBC % 0.0 (0.0-0.3) % Absolute Neutrophils 4.04 (1.2-6.7) 10^3/uL Absolute Lymphocytes 2.33 (1.2-3.4) 10^3/uL Absolute Monocytes 0.68 (0.1-0.8) 10^3/uL Absolute Eosinophils 0.11 (0.0-0.7) 10^3/uL Absolute Basophils 0.05 (0.0-0.2) 10^3/uL PT 24.4 H (9.1-11.1) sec INR 2.6 H (0.9-1.1) Sodium 140 (136-145) mmol/L Potassium 3.8 (3.5-5.1) mmol/L Chloride 103 (98-107) mmol/L Carbon Dioxide 27.3 (21.0-32.0) mmol/L Anion Gap 9.7 (3-11) mmol/L BUN 26 H (7-18) mg/dL Creatinine 1.1 H (0.55-1.02) mg/dL Est GFR (CKD-EPI 2020) 53.72 (mL/min/1.73m2) Glucose 124 H (74-106) mg/dL Calcium 8.7 (8.5-10.1) mg/dL Magnesium 2.0 (1.8-2.4) mg/dL Total Bilirubin 0.4 (0.2-1.0) mg/dL AST 17 (15-37) U/L ALT 22 (14-59) U/L Alkaline Phosphatase 105 (46-116) U/L Troponin I 6 (<or=51) ng/L Total Protein 7.5 (6.4-8.2) g/dL Albumin 3.7 (3.4-5.0) g/dL Urine Color (Yellow) Urine Clarity (Clear) Urine pH (5-8) Ur Specific [place] (1.005-1.025) Urine Protein (Neg-Trace) mg/dL Urine Ketones (Negative) mg/dL Urine Blood (Negative) Urine Nitrite (Negative) Urine Bilirubin (Negative) Urine Urobilinogen (Up to 0.2) mg/dL Ur Leukocyte Esterase (Negative) Urine RBC (0-2) HPF Urine WBC (0-5) HPF Ur Epithelial Cells (Negative) HPF Urine Crystals (Negative) HPF Urine Bacteria (Negative) HPF Urine Mucus (Negative) Ur Culture Indicated? Urine Glucose (Negative) mg/dL Add-On Test Request DONE [id number] Documentation Fingerstick Glucose Start: 11/16/24 13:11 Freq: .Stat Status: Active Protocol: Activity Type Activity Date Activity User E-sign Co-sign Detail Recorded Client Recorded Date Recorded By Document 11/16/24 13:16 BKG DAEMON(3) [id number] 11/16/24 13:18 BKG DAEMON(4) Intake and Output - 24 Hour Total 11/16/24 12:59 thru 11/16/24 17:11 Weight 73 kg Other: Urine Appearance Clear Falls Risk Assessment History of Falls No History 11/16/24 17:11 Contributing Factors No Factors 11/16/24 17:11 Ambulatory Aids Independent 11/16/24 17:11 Tubes/Lines W/no contributing factors 11/16/24 17:11 Gait Evaluation W/no contributing factors 11/16/24 17:11 Cognition Cognitive impairment 11/16/24 14:34 Fall Total Score 20 11/16/24 17:11 Level of Risk Standard/Low Risk 11/16/24 17:11 Problems (Last Updated 11/16/24 @ 16:57 by Yash Lepe) Aphasic disturbance (Acute) v v v v v v v v v Sending and/or Receiving Nurses: Please use comment section below to note any information pertinent to the patient hand-off not included above. Information / Comments: Paged [phone]. Called for report [id number]. Report received from: CLARISSA Schaefer RN
[2024-11-16] MEDS: Atorvastatin 40 MG TAB 80 MG PO (19:44)
[2024-11-16] MEDS: levETIRAcetam 250 MG TAB 500 MG PO (19:44)
[2024-11-16] MEDS: Normal Saline Flush 10 ML SYR IVP (19:45)
[2024-11-17 06:55] LABS: INR 2.8 (0.9-1.1); Prothrombin Time 26.1 sec (9.1-11.1)
[2024-11-17 06:58] LABS: Anion Gap 7.1 mmol/L (3-11); BUN 20 mg/dL (7-18); CO2 27.9 mmol/L (21.0-32.0); Calcium 8.8 mg/dL (8.5-10.1); Chloride 106 mmol/L (98-107); Estimated GFR 95.90 (mL/min/1.73m2); Glucose 94 mg/dL (74-106); Potassium 3.9 mmol/L (3.5-5.1); Sodium 141 mmol/L (136-145)
[2024-11-17 07:01] LABS: Hemoglobin A1C 5.4 % (<5.7)
[2024-11-17 07:03] VITALS: BP 118/66; PULSE 65; RESP 16; TEMP 36.3; O2SAT 98
[2024-11-17 07:05] LABS: Calculated LDL 126 mg/dL (<100); Cholesterol 204 mg/dL (<200); HDL Cholesterol 67 mg/dL (>or=50); Triglyceride 58 mg/dL (<150)
[2024-11-17] MEDS: Normal Saline Flush 10 ML SYR IVP ×3 (07:27→20:47)
[2024-11-17] MEDS: levETIRAcetam 250 MG TAB 500 MG PO ×2 (07:28→20:47)
--- NOTE | 2024-11-17 08:23 | PDOC.CMIN ---
Date of service: 11/17/24 Time of Service: 08:24 Care Management Initial Assmt Initial Assessment Reason for Hospitalization: TIA vs. Seizures Functional Status/Living Situation Patient Presentation: Tere was sitting in a chair reading a book when CM met with her. She is pleasant and easy to engage in conversation. The patient shared that her sister brought her to the hospital after she experienced a small seizure that differed from her previous seizures. Per Pt, she is now having a problems walking. Following a PT evaluation, she was issued her a cane. Tere resides with her sister Babs in an apartment attached to the home. Babs provides transportation and is very supportive. Tere reports that she does not have any community based services at this time. CM will follow. Town of Residence: [facility] Resides with: Other (Sister Babs) Significant Other/Family: Local Natural Supports: Sister Babs [id number] Employment Status: Disabled Instrumental Activities of Daily Living (ADLs): Requires support (Independent with ADLs, requires support with IADLs, transportation, grocery shopping etc. ) Medications Medication Management: No Issues/Barriers identified Advance Directives Advance Directives: Do you have an Advance Directive: N 11/22/21, 14:11 AD On File at [facility]: N 11/22/21, 14:11 Date Asked 11/16/24 11/16/24, 13:04 AD Date Reviewed 11/16/24 11/16/24, 22:39 COLST On File at [facility] No 11/16/24, 22:39 COLST Date Scanned Code Status Resuscitation Status Full Code Insurance Coverage/Financial Issues Insurance: Medicare Part A & B - [id number] 4 Life MCR Supplement - [id number] Care Team Visit Care Team Role Provider Type Marycarmen Vizcarra Primary Care Provider NURSE PRACTITIONER InPatient Shaun Eduardo Other Providers OTHER SUNITA Ernst Emergency Provider PHYSICIANS ASSISTANT Yash Lepe Admit Provider [facility] STAFF PHYSICIAN Attending Provider Discharge Potential Discharge Needs: PCP F/U Appt Anticipated Barriers to Discharge: None Identified Patient/Family Education Needs: Review discharge instructions, discuss Ask Me Three Transportation: Private vehicle Plan: Anticipate, Tere will be discharge home via private vehicle with family when medically cleared. Follow up with PCP, outpatient PT and discharge plan of care as directed. No new services are anticipated at this time. Social Determinants of Health Screening Social Determinants of health last assessed in clinic: 11/17/24 Will the Patient Participate in the Screening?: Yes Do you worry about having a steady place to live?: no Problems where you live: no known problems In the past 12 months, have you had to go without electric, gas, oil or water in your home?: no 1. Within the past 12 months, we worried whether our food would run out before we got money to buy more.: Never true 2. Within the past 12 months, the food we bought just didn't last and we didn't have money to get more.: Never true Has lack of transportation kept you from medical appointments or from doing things needed for daily living?: no Has anyone in your life made you feel unsafe or unsupported?: no How hard is it for you to pay for the very basics like food, housing, medical care, and heating? Would you say it is:: Not hard at all Do you want help finding or keeping work or a job?: I do not need or want help If for any reason you need help with day-to-day activities such as bathing, preparing meals, shopping, managing finances, etc., do you get the help you need?: I get all the help I need How often do you feel lonely or isolated from those around you?: Never Do you speak a language other than Mohawk at home?: No Does the patient want assistance with any of the above?: No PFSH All Active Problems (Updated 11/16/24 @ 17:05 by Yash Lepe) Aphasic disturbance (Acute) Tubular adenoma (Acute ~09/2022) Mentally challenged (Acute) Thyroid nodule (Acute) Mental disability (Acute) Medical History (Updated 11/16/24 @ 17:05 by Yash Lepe) Liver cyst Postop check Breast cancer, left Epilepsy Per sister she has a slight developmental delay, but is pretty with it, per sister she signs for self Leg edema Esotropia, left eye Family history of breast cancer Scoliosis Dysphagia DVT, bilateral lower limbs Tx with heperain, clot did not resolve on enoxaparin Seizure disorder Dx at age 12yrs Per sister she hasnt had one in over 10 years Surgical History History of colonoscopy with polypectomy (~09/2022) Status post left breast lumpectomy (~03/2020) with sentinel node bx, [place] Hx of colonoscopy (~04/2010) Family History Mother Breast cancer Dx 50s Sister Breast cancer Dx 40s Sister No problems noted. Social History (Updated 11/16/24 @ 16:59 by Yash Lepe) Smoking/Tobacco Use Status: Never Smoking risk assessment performed?: Yes Alcohol Intake: current Alcohol Intake frequency: 0-2 drinks per day Alcohol type: hard liquor Details: 1 small drink/day Drug use: Never Substance use type: does not use Housing: house Do you feel safe at home: Yes Do you feel safe in your relationship?: Yes Additional Social history: Lives with sister and ABDIEL [facility] [place] property in [place] Exercise daily
--- NOTE | 2024-11-17 08:56 | PT.INIE ---
PT Notes Visit Reasons: TIA vs seizure Inpatient Physical Therapy Evaluation Date: 11/17/24 Referring Doctor: Dr. Lepe PT Orders: PT CONSULT: safety consult for d/c Precautions: fall, standard Certification Period: From 11/17/24 through 11/24/24 I certify the need for these services as being medically necessary and skilled as furnished under this plan of treatment while under my care. Please sign and return within 14 days if you agree wit the above plan of care. Thank you for this referral! Referring Physician: Date: Patient Profile/Admitting Diagnosis: Tere is a 69 yo F with history of mild intellectual disability, seizure disorder with h/o abscence seizures not on therapy, breast cancer, and history of DVT on warfarin who presented to ER yesterday, after an episode of unresponsiveness witnessed by her sister. In ER, was found to have difficulty ambulating and speaking, and was admitted for observation. Social History/Home Situation: Tere resides in an in-law apartment attached to her sister's home. She has 4 steps to enter her apartment, and navigates a full outdoor flight of steps daily to let her sister's dog out. Has bilateral rails on each side of steps. Typically ambulates independently. No fall history. States that she gets up and down from the floor for her exercises each day. Also completes daily aquatic exercises in her home pool. Has participated in PT intervention in the past, and has been compliant with her home program long-term. Equipment Owned/DME: none Subjective: Tere states that she is feeling back to normal today. States that she is no longer having difficulty speaking, and thinks her balance is back to normal. She does note baseline difficulty with coordination and depth perception, making stairs difficult. Typically avoids fine motor tasks such as weeding, writing. Objective: General Observation: Resting in chair with IV in RUE. No additional lines. Mental Status: A and O x 3. Pleasant and cooperative throughout session. Does demonstrate some impulsivity with gross movement, although with cues for slowing down is able to demonstrate improved safety. Pain: Denies ROM: Right Upper Extremity: Shoulder flexion 100 degrees, with endrange pain, which patient reports is chronic. Otherwise WFL. Left Upper Extremity: Shoulder flexion 100 degrees, with endrange pain, which patient reports is chronic. Otherwise WFL. Right Lower Extremity: WFL Left Lower Extremity: WFL Strength: Right Upper Extremity: Shoulder flexion 3-/5. Biceps 4/5. Triceps 4 -/5. Cylinder Batcher is strong and equal. Left Upper Extremity: Shoulder flexion 3-/5. Biceps 4/5. Triceps 4 -/5. Cylinder Batcher is strong and equal. Right Lower Extremity: Hip flexion 3+/5. Quads 4+/5. Ankle dorsiflexion 4/5. Left Lower Extremity: Hip flexion 3+/5. Quads 4+/5. Ankle dorsiflexion 4/5. Bed Mobility/Transfers: Sit?stand: Independent Stand?sit: Independent Gait: Initially ambulates without assistive device, requiring handhold assist path deviation to the left and loss of balance x 2 requiring min assist for recovery. With transition to utilization of cane, she is able to walk with SBA only, without loss of balance or significant path deviation. Ambulates with straight cane, SBA, 120 feet x 2. Stairs: Navigates therapeutic stairs 6 inches x 2, 4 inches x 3 with straight cane and contralateral upper extremity support to rail for 3 repetitions. With education as noted below, she is able to demonstrate this with good sequencing and SBA only by end of session. Balance: Static Sitting: Normal Dynamic Sitting: Normal Static Standing: good Dynamic Standing: Fair Special Tests: Mobility Limitations Standardized Measure [facility] AM-PAC 6 clicks Basic Mobility Inpatient Short Form: Raw Score: 21 Standardized Score: 50.25 CMS Score: 29% impairment Payton balance test: 30/56 indicating increased fall risk and need for external support during ambulation Informed Consent/Education: Patient instructed in purpose of PT consult and plan of care. Treatment: Initial evaluation (06676) Gait training (26938): fitted with straight cane, and instructed in effective use per straight plan ambulation and management of stairs. Issued straight cane for home utilization and encouraged consistent use. Discussed various strategies for managing specific tasks at home as well as the importance of slowing down, and taking her time with all mobility. Assessment: Patient is a 69 year old female referred to physical therapy services in acute care setting, where she is being managed following an unresponsive event yesterday. Patient presents with acute on chronic mobility impairments; suspect an underlying balance impairment, exacerbated by yesterday's events. She requires external support with use of straight cane today, and have encouraged her to utilize that as she transitions home. She will additionally benefit from resumption of outpatient PT services to address gait and balance impairments. She currently demonstrates the following impairment level findings: 1. Balance impairment 2. Decrease safety awareness 3. Decreased lower extremity strength 4. Decreased upper extremity strength 5. Payton scores 30/56 Impairments are contributing to the following functional limitations: 1. Increased risk for falls 2. Requiring external support for ambulation with use of straight cane (typically an independent ambulator) Patient is assessed as a Low 48144 complexity based on the following: History: as above. Complicated by cognitive impairment, history of seizures, chronic anticoagulation. Examination: As above Presentation: Stable Decision Making: Low complexity Goals: Goals X1 week 1. Supine-Sit: Independent 2. Sit-Supine : Independent 3. Sit-Stand : Independent 4. Stand-Sit : Independent 5. Bed-Chair : supervision with cane 6. Chair-Bed : supervision with cane 7. Gait : supervision with cane x 150' 8. Stairs : supervision with cane Plan of Care/Treatment Plan: 1-2x/day, 7 days/week x 1 week. Plan of care has been reviewed with the UNIX SYSTEMS ADMINISTRATOR providing the service under Physical Therapy direction. Initiate Physical Therapy intervention for strengthening, bed mobility, transfers, gait, stairs, balance training, use of assistive device. DISCHARGE RECOMMENDATIONS: Home with outpatient PT TREATMENT CODE/TIME: 11 22?0855 (68203, 23150) Larissa Howe, PT, DPT [facility] All Active Problems (Updated 11/16/24 @ 17:05 by Yash Lepe) Aphasic disturbance (Acute) Tubular adenoma (Acute ~09/2022) Mentally challenged (Acute) Thyroid nodule (Acute) Mental disability (Acute) Medical History (Updated 11/16/24 @ 17:05 by Yash Lepe) Liver cyst Postop check Breast cancer, left Epilepsy Per sister she has a slight developmental delay, but is pretty with it, per sister she signs for self Leg edema Esotropia, left eye Family history of breast cancer Scoliosis Dysphagia DVT, bilateral lower limbs Tx with heperain, clot did not resolve on enoxaparin Seizure disorder Dx at age 12yrs Per sister she hasnt had one in over 10 years Surgical History History of colonoscopy with polypectomy (~09/2022) Status post left breast lumpectomy (~03/2020) with sentinel node bx, [place] Hx of colonoscopy (~04/2010)
[2024-11-17] MEDS: Cholecalciferol (Vitamin D3) 400 UNIT TAB PO (10:39)
--- NOTE | 2024-11-17 10:58 | W.PM.PROGNOT ---
Date of Service Date of service: 11/17/24 Time of Service: 10:58 Assessment and Plan Assessment and plan (1) Aphasic disturbance: Status: Acute Assessment and plan: DDx includes seizure, TIA/CVA, and presyncopal type event. CTA reassuring as is EKG/troponin ABCD2 score would be 4, moderate risk Case reviewed with teleneurologist, recommended starting keppra (tegretol interacts with warfarin) and doing MRI for TIA/CVA. She is tolerating Keppra with no recurrent events. Given option of home with expedited evaluation as outpatient, but prefers to stay for MRI. If this is positive, would do full work up including prolonged environmental monitoring technician and echo possibly with bubble given her DVT. However less c/w TIA/CVA per teleneuro assessment. continue tele monitoring, PT (2) Seizure disorder: Assessment and plan: As above, possible recurrent seizure. Now on Keppra (3) DVT, bilateral lower limbs: Assessment and plan: Warfarin at goal, continue home dosing and follow INRs. Subjective Subjective Patient reports: no new complaints, feels better, tolerating a regular diet and voiding w/o difficulty; denies nausea or fever Interval history since last seen: Feels well. Walked with PT, given a cane which helps. No chest pain, sob, or palpitations. no neurologic events. No voice changes. Exam Narrative Exam Narrative: GEN: Alert and oriented x 4, NAD LUNGS: CTAB with normal effort CV: RRR with no murmurs, gallops, or rubs. NEURO: CN 2-12 grossly intact x left eye. Visual hull intact to confrontation. Normal FNF. Normal movement of 4 extremities, normal sensation to light touch. Normal speech. No tremor PSYCH: normal mood and affect Objective Last Vital Signs Temp 36.3 C L 11/17/24 07:03 Pulse 65 11/17/24 07:03 Resp 16 11/17/24 07:03 BP 118/66 11/17/24 07:03 Pulse Ox 98 11/17/24 07:03 Laboratory Results - last 24 hr 11/16/24 11/16/24 11/16/24 13:18 13:34 14:38 WBC 7.23 RBC 5.06 Hgb 14.5 Hct 44.5 MCV 88 MCH 28.7 MCHC 32.6 RDW 14.4 Plt Count 289 MPV 10.7 Immature Gran % 0.3 Neutrophils % 55.9 Lymphocytes % 32.2 Monocytes % 9.4 Eosinophils % 1.5 Basophils % 0.7 Nucleated RBC % 0.0 Absolute Neutrophils 4.04 Absolute Lymphocytes 2.33 Absolute Monocytes 0.68 Absolute Eosinophils 0.11 Absolute Basophils 0.05 PT 24.4 H INR 2.6 H Sodium 140 Potassium 3.8 Chloride 103 Carbon Dioxide 27.3 Anion Gap 9.7 BUN 26 H Creatinine 1.1 H Est GFR (CKD-EPI 2020) 53.72 Glucose 124 H Hemoglobin A1c Calcium 8.7 Magnesium 2.0 Total Bilirubin 0.4 AST 17 ALT 22 Alkaline Phosphatase 105 Troponin I 6 7 Total Protein 7.5 Albumin 3.7 Triglycerides Total Cholesterol LDL Cholesterol, Calc HDL Cholesterol Urine Color Urine Clarity Urine pH Ur Specific [place] Urine Protein Urine Ketones Urine Blood Urine Nitrite Urine Bilirubin Urine Urobilinogen Ur Leukocyte Esterase Urine RBC Urine WBC Ur Epithelial Cells Urine Crystals Urine Bacteria Urine Mucus Ur Culture Indicated? Urine Glucose Add-On Test Request DONE 11/16/24 11/16/24 11/17/24 15:25 16:42 06:26 WBC RBC Hgb Hct MCV MCH MCHC RDW Plt Count MPV Immature Gran % Neutrophils % Lymphocytes % Monocytes % Eosinophils % Basophils % Nucleated RBC % Absolute Neutrophils Absolute Lymphocytes Absolute Monocytes Absolute Eosinophils Absolute Basophils PT 26.1 H INR 2.8 H Sodium 141 Potassium 3.9 Chloride 106 Carbon Dioxide 27.9 Anion Gap 7.1 BUN 20 H Creatinine 0.6 Est GFR (CKD-EPI 2020) 95.90 Glucose 94 Hemoglobin A1c 5.4 Calcium 8.8 Magnesium Total Bilirubin AST ALT Alkaline Phosphatase Troponin I 6 Total Protein Albumin Triglycerides 58 Total Cholesterol 204 H LDL Cholesterol, Calc 126 H HDL Cholesterol 67 Urine Color Yellow Urine Clarity Clear Urine pH 6.0 Ur Specific [place] 1.010 Urine Protein Negative Urine Ketones Negative Urine Blood Trace-intact H Urine Nitrite Negative Urine Bilirubin Negative Urine Urobilinogen 0.2 Ur Leukocyte Esterase Negative Urine RBC 0-2 Urine WBC Negative Ur Epithelial Cells Rare Urine Crystals Negative Urine Bacteria Negative Urine Mucus Negative Ur Culture Indicated? No Urine Glucose Negative Add-On Test Request PAWSS Have you Been Recently Intoxicated or Drunk Within the Last 30 days?: No Have you Ever Experienced Previous Episodes of Alcohol Withdrawal?: No Have you ever Experienced Withdrawal Seizures?: No Have you ever Experienced Delirium Tremens(DT)s?: No Have you ever undergone Alcohol Rehabilitation Treatment (i.e, inpt ot outpatient treatment programs)?: No Have you ever Experienced Blackouts?: No Have you ever Combined Alcohol with other Downers within the last 90 days?: No Have you ever Combined Alcohol with any other Substance of Abuse during the last 90 days?: No Positive Blood Alcohol level on Presentation? [PCS.BAL]: No Evidence of Increased Autonomic Activity (i.e. HR>120, tremor, sweating, agitation, nausea)?: No Result: 0 Time Spent with Patient Time Spent with Patient: 25-34 minutes Time was spent: preparing to see the patient(eg.review tests), obtaining and/or reviewing separately otained hiistory, ordering medications,tests, procedures, referring, communicating with other health patient care, indepentently interpreting results, counseling the patient and care coordination
[2024-11-17 11:11] VITALS: BP 133/76; PULSE 56; RESP 16; TEMP 36.6; O2SAT 98
[2024-11-17] MEDS: Acetaminophen 325 MG TAB 650 MG PO (13:11)
[2024-11-17 15:10] VITALS: BP 120/74; PULSE 61; RESP 16; TEMP 36.4; O2SAT 98
[2024-11-17 19:50] VITALS: BP 121/72; PULSE 63; RESP 16; TEMP 36.5; O2SAT 95
[2024-11-17] MEDS: Atorvastatin 40 MG TAB 80 MG PO (20:47)
[2024-11-17] MEDS: Warfarin 4 MG TAB PO (20:47)
--- NOTE | 2024-11-18 | DI.CT_ITS ---
Exam(s) CT HEAD WO EXAM: CT HEAD WO CLINICAL HISTORY: TIA followup, MRI contraindicated. TECHNIQUE: Imaging Protocol: Axial computed tomography images with coronal and sagittal reformatted images were created and reviewed COMPARISON: CT CT BRAIN NECK CTA from 11/16/2024 FINDINGS: Ventricles and Extra axial spaces: Normal in size and morphology for the patient's age. Hemorrhage: None. Cerebral parenchyma: No evidence of acute infarct or mass. Midline shift: None. Brainstem/Cerebellum: Normal. Bones: No skull or facial fractures. Visualized Paranasal sinuses:Chronic sphenoid sinus disease. Mastoids: Clear. Soft Tissues: Unremarkable. ORBITS: Unremarkable. PITUITARY: Not enlarged. IMPRESSION: No acute intracranial process. RADIATION DOSE DELIVERED: 822.42mGy.cm Total DLP DATA REPOSITORY: All CT scans at this facility are submitted to the National Radiology Data Registry (NRDR) Dose Index Registry (DIR) with the [employer] (ACR). RADIATION OPTIMIZATION: All CT scans at this facility use at least one of these dose optimization techniques: automated exposure control; mA and/or kV adjustment per patient size (includes targeted exams where dose is matched to clinical indication); or iterative reconstruction.
[2024-11-18 01:00] VITALS: BP 120/81; PULSE 65; RESP 16; TEMP 36.1; O2SAT 90
[2024-11-18 06:44] LABS: INR 2.7 (0.9-1.1); Prothrombin Time 25.1 sec (9.1-11.1)
[2024-11-18 07:05] VITALS: BP 127/74; PULSE 52; RESP 17; TEMP 36.3; O2SAT 95
[2024-11-18] MEDS: levETIRAcetam 250 MG TAB 500 MG PO (09:53)
[2024-11-18] MEDS: Cholecalciferol (Vitamin D3) 400 UNIT TAB PO (09:54)
[2024-11-18] MEDS: Normal Saline Flush 10 ML SYR IVP (09:54)
[2024-11-18 11:10] VITALS: BP 123/71; PULSE 57; RESP 17; TEMP 36.4; O2SAT 97
--- NOTE | 2024-11-18 13:15 | PT.INTREAT ---
PT Notes Visit Reasons: TIA vs seizure Inpatient Physical Therapy Treatment Note [facility] Date: 11/18/24 PRECAUTIONS: standard SUBJECTIVE: Tere states that she's feeling much better. She's been up to the bathroom on her own and is feeling steadier. OBJECTIVE: ? PAIN: denies ? BED MOBILITY/TRANSFERS? Rolling L/R: independent Supine-sit: independent? Sit-supine: independent ? Sit-stand: independent? Stand-sit: independent ? Provided skilled cues and instruction on performance and technique throughout. ? Neuromuscular Re-education (31203e1): Activities that facilitate re-education of movement balance, posture, coordination, and proprioception or kinesthetic sense, requiring skilled tactile and verbal cues ? Exercises/techniques: ? Ambulation ? Assistive Device: cane? Weight bearing: full Assist: SBA ? Distance:? 300'x2 ? Deviation: minor path deviation Instructed in balance retraining: walk with head turns, 50', CGA standing hip PREs with fingertip support 10x each HR 10x2 tandem walk with unilateral UE support 10'x2 tandem stance 30 seconds each, min A sit-stand 5x2, no UE support ? ? ASSESSMENT/PLAN: Improving safety and mobility. Continue with balance retraining as tolerated. TREATMENT CODE/TIME: 2631-6795 (94178) DISCHARGE RECOMMENDATION: home with outpatient PT, cane for ambulation
--- NOTE | 2024-11-18 13:23 | CMPROGNOTE_ITS ---
Date of service: 11/18/24 Time of Service: 13:24 Care Management Progress Note Progress Note Text Progress Note Text: Tere was sitting up in the bedside chair today when CM met with her. She was very pleasant. She stated that she is feeling a lot better than when she first came to the hospital and is hoping to go home. Tere lives with her sister who is her caregiver and denies any needs at home at this time. Tere was noted to be walking well in the halls this afternoon with PT. Tere denied the need for outpatient PT, as she exercises in her pool with her sister daily. Tere had a head CT today that showed no acute process, no infarct or mass. Discharge Potential Discharge Needs: PCP F/U Appt Anticipated Barriers to Discharge: None Identified Patient/Family Education Needs: Review discharge instructions, discuss Ask Me Three Transportation: Private vehicle Plan: Anticipate that Tere will discharge home with no new services. She will f/u with her PCP and continue per her plan of care. Tere will transport home in a private vehicle with her sister. CM will continue to follow. Social Determinants of Health Screening Social Determinants of health last assessed in clinic: 11/18/24 Will the Patient Participate in the Screening?: Yes Do you worry about having a steady place to live?: no Problems where you live: no known problems In the past 12 months, have you had to go without electric, gas, oil or water in your home?: no 1. Within the past 12 months, we worried whether our food would run out before we got money to buy more.: Don't know/refused 2. Within the past 12 months, the food we bought just didn't last and we didn't have money to get more.: Don't know/refused Has lack of transportation kept you from medical appointments or from doing things needed for daily living?: no Has anyone in your life made you feel unsafe or unsupported?: no How hard is it for you to pay for the very basics like food, housing, medical care, and heating? Would you say it is:: Not hard at all Do you want help finding or keeping work or a job?: I do not need or want help If for any reason you need help with day-to-day activities such as bathing, preparing meals, shopping, managing finances, etc., do you get the help you need?: I get all the help I need How often do you feel lonely or isolated from those around you?: Never Do you speak a language other than Algerian at home?: No Does the patient want assistance with any of the above?: No
[2024-11-18 15:21] VITALS: BP 149/77; PULSE 60; RESP 17; TEMP 36.7; O2SAT 99
--- NOTE | 2024-11-18 15:28 | PTTR_ITS ---
PT Notes Visit Reasons: TIA vs seizure Inpatient Physical Therapy Treatment Note [facility] Date: (2nd session) PRECAUTIONS: standard SUBJECTIVE: Tere asking if she is going home so she can notify her family. OBJECTIVE: ? PAIN: denies ? BED MOBILITY/TRANSFERS? Rolling L/R: independent Supine-sit: independent? Sit-supine: independent ? Sit-stand: independent? Stand-sit: independent ? Provided skilled cues and instruction on performance and technique throughout. ? Neuromuscular Re-education ([id number]): Activities that facilitate re-education of movement balance, posture, coordination, and proprioception or kinesthetic sense, requiring skilled tactile and verbal cues ? Exercises/techniques: ? Ambulation ? Assistive Device: cane? Weight bearing: full Assist: SBA ? Distance:? 300'x1 ? Deviation: minor path deviation, forward flexed trunk. Instructed in balance retraining: walk with head turns, 50', CGA standing hip PREs with fingertip support 10x each HR 10x2 tandem walk with unilateral UE support 10'x2 tandem stance 30 seconds each, min A sit-stand 5x2, no UE support ? ? lateral stepping with unilateral intermittent UE support -4 square stepping requiring unilateral UE support only for retrostepping. performed x 5 B directions with sit rest between - forward stepping over 4 objects ( 2 canes , tissue box and rolled bath blanket.) - stairs with 1 rail reciprocal pattern. ASSESSMENT/PLAN: Improving safety and mobility.Pt with depth perception deficits with stepping over objects of various heights with inconsistent ability to cl ear. Pt compensated after initial trial with steppage/march pattern to ensure foot clearance.Continue with balance retraining as tolerated. TREATMENT CODE/TIME:[id number] ([id number]) DISCHARGE RECOMMENDATION: home with outpatient PT, cane for ambulation
--- NOTE | 2024-11-18 15:42 | DSE_ITS ---
Date of service: 11/18/24 Time of Service: 15:00 DS: Diagnosis Discharge Diagnosis (1) Aphasic disturbance: Status: Resolved Asessment and Plan: DDx includes seizure, TIA/CVA, and presyncopal type event. CTA reassuring as is EKG/troponin ABCD2 score would be 4, moderate risk Case reviewed with teleneurologist, recommended starting keppra (tegretol interacts with warfarin) and doing MRI for TIA/CVA. She is tolerating Keppra with no recurrent events. Given option of home with expedited evaluation as outpatient, but prefers to stay for MRI. If this is positive, would do full work up including prolonged pvc monitor and echo possibly with bubble given her DVT. However less c/w TIA/CVA per teleneuro assessment. (2) Seizure disorder: Asessment and Plan: As above, possible recurrent seizure. Now on Keppra (3) DVT, bilateral lower limbs: Asessment and Plan: Present on admission Warfarin at goal, continue home dosing and follow INRs. Discharge Plan Disposition Patient Disposition: Home Condition: Good Discharge Details Reason For Visit: TIA vs seizure Admit Date/Time: 11/16/24 16:32 Admit Provider: Yash Lepe Attending Provider: Yash Lepe Primary Care Provider: Marycarmen Vizcarra [facility] Hospital Course: Teer Carr is a 69 year old woman presenting November 16 with aphasia after falling to the floor. She has history of seizures but has been off medication for years. Stroke workup negative. Unable to do MRI due to very old spinal marilin vs new protocol at this facility. Discussed with [facility] teleneurology; will discharge on keppra with outpatient followup. Recommendations for Follow Up Recommended tests to be ordered by follow up provider: Consider EEG with neurology Home Meds and New Rx's Prescriptions: New levetiracetam 250 mg Tablet 500 mg PO BID Qty: 120 3RF Continued Emergen-C 1,000 mg powder effervescent in packet 1 packet PO DAILY cholecalciferol (vitamin D3) 10 mcg (400 unit) capsule 10 mcg PO DAILY warfarin 1 mg tablet 4 mg PO DAILY Qty: 120 0RF Discontinued aspirin 325 mg tablet 325 mg PO DAILY coenzyme Q10 [Co Q-10] 10 mg capsule 10 mg PO ONCE letrozole 2.5 mg tablet 2.5 mg PO DAILY Discharge Instructions Instructions: Seizures Stand Alone Forms: Nursing Discharge Form Referrals: Marycarmen Vizcarra [Primary Care Provider, Medicine] Referral Note: PCP office will call you to set up a follow up appointment. Activity:: Activity as Tolerated Equipment/Supplies:: No Equipment Needed Diet:: As Tolerated Discharge Orders Discharge Orders: Discharge Order (Routine); Ordered 11/18/24 Ordered By: Naveen Reina Discharge Data Discharge Date/Time-TO BE ENTERED AT DEPARTURE: 11/18/24 17:12 DS: Summary Time Spent with Patient providing and/or coordinating discharge services: Less than 30 minutes Status at Discharge Functional status at discharge: independent ambulation Overall status at discharge: patient is back to baseline Mental Status: mental status grossly normal Speech and Movement: speech and movement normal Mood: congruent mood Affect: normal affect Exam Narrative Exam Narrative: General: This is a pleasant woman in no distress HEENT: Normocephalic, atraumatic CV: RRR Resp: CTAB Abd: NTND, +NBS MSK: voluntary motion x4 Neuro: awake, alert, no focal deficits Psych Mental Status: mental status grossly normal Speech and Movement: speech and movement normal Mood: congruent mood Affect: normal affect DS: Data Vitals/I&O Vitals and I&O: Vital Signs Temperature 36.7 C 11/18/24 15:21 Temperature Source Temporal Artery Scan 11/18/24 15:21 Pulse 60 11/18/24 15:21 Pulse Rhythm Regular 11/16/24 17:11 Pulse 61 11/16/24 16:50 Respiratory Rate 17 11/18/24 15:21 Respiratory Effort Normal, Non-Labored 11/16/24 17:11 Respiratory Depth Normal 11/16/24 17:11 Respiratory Pattern Normal 11/16/24 17:11 Blood Pressure 149/77 H 11/18/24 15:21 Blood Pressure Mean 101 11/18/24 15:21 Blood Pressure Position Sitting 11/16/24 13:03 Pulse Oximetry 99 11/18/24 15:21 Oxygen Delivery Method Room Air 11/18/24 15:21 Oxygen Flow Rate 0 11/18/24 15:21 Pain Level 0 11/18/24 15:21 Intake & Output 11/17/24 11/18/24 11/18/24 23:59 11:59 23:59 Intake Total 460 / 460 Balance 460 / 460 Intake: Oral 460 / 460 Other: Urine Color Yellow Yellow Urine Appearance Clear Urine Odor Normal Normal Comment independent pt voided into toilet, unmeasured void Data Completed and Pending Labs on day of discharge: Labs from last 24 hours 11/18/24 05:35 PT 25.1 H INR 2.7 H PFSH All Active Problems (Updated 11/19/24 @ 00:03 by [employer]OLMAN) Tubular adenoma (Acute ~09/2022) Mentally challenged (Acute) Thyroid nodule (Acute) Mental disability (Acute) Medical History (Updated 11/19/24 @ 00:03 by [employer]) Liver cyst Postop check Breast cancer, left Epilepsy Per sister she has a slight developmental delay, but is pretty with it, per sister she signs for self Leg edema Esotropia, left eye Family history of breast cancer Scoliosis Dysphagia DVT, bilateral lower limbs Tx with heperain, clot did not resolve on enoxaparin Seizure disorder Dx at age 12yrs Per sister she hasnt had one in over 10 years Surgical History (Updated 11/19/24 @ 00:03 by [employer]) History of colonoscopy with polypectomy (~09/2022) Status post left breast lumpectomy (~03/2020) with sentinel node bx, [place] Hx of colonoscopy (~04/2010) Family History Mother Breast cancer Dx 50s Sister Breast cancer Dx 40s Sister No problems noted. Social History (Updated 11/16/24 @ 16:59 by Yash Lepe) Smoking/Tobacco Use Status: Never Smoking risk assessment performed?: Yes Alcohol Intake: current Alcohol Intake frequency: 0-2 drinks per day Alcohol type: hard liquor Details: 1 small drink/day Drug use: Never Substance use type: does not use Housing: house Do you feel safe at home: Yes Do you feel safe in your relationship?: Yes Additional Social history: Lives with sister and ABDIEL in [facility] on property in [place] Exercise daily Time Spent with Patient Time Spent with Patient: <45 minutes Time was spent: preparing to see the patient(eg.review tests), obtaining and/or reviewing separately otained hiistory, ordering medications,tests, procedures, referring, communicating with other health health care marketing manager, indepentently interpreting results, counseling the patient and care coordination
== END 2024-11-18 17:12 | disposition home or self-care (01) ==
LOC: ER 13:04 → MS 17:09
PROVIDERS: Admitting Provider Family Medicine; Emergency Provider Physician Assistant; PCP Nurse Practitioner Family; Responsible Provider Family Medicine; Visit Provider Family Medicine
DX: R47.01 Aphasia (principal); G40.A09 Absence epileptic syndrome, not intractable, without status epilepticus; R13.10 Dysphagia, unspecified; Z85.3 Personal history of malignant neoplasm of breast; E04.1 Nontoxic single thyroid nodule; Z79.01 Long term (current) use of anticoagulants; Z86.718 Personal history of other venous thrombosis and embolism; W19.XXXA Unspecified fall, initial encounter; F79 Unspecified intellectual disabilities
CPT/HCPCS: 00123; 36415; 36416; 70496; 70498; 80048; 80053; 80061; 82962; 93005; 97112; 97116; 97161; 99285; 70450; 71045; 81003; 81015; 83036; 83735; 84484; 85025; 85610; 93010; 99222; 99232; 99238; G0378; J3490